=== PATIENT | male | born 1940 | race Caucasian/White ===

== ENCOUNTER → 2018-05-10 11:22 | Outpatient (CLI) | payer MEDICARE, BC, SELFPAY ==
--- NOTE | 2018-05-10 | DI.RAD.S_ITS ---
PROCEDURE: XR CHEST 2V INDICATIONS: COUGH TECHNIQUE: 2 views of the chest were acquired. COMPARISON: None. FINDINGS: Surgical changes and devices: None. Lungs and pleura: Left basilar scars or atelectasis. No pleural effusions or pneumothorax. Mediastinum: Mediastinal contours are normal. Heart size is normal. Bones and chest wall: No suspicious bony abnormalities. Soft tissues appear unremarkable. IMPRESSION: Left basilar scars or atelectasis. Dictated by: Crow Dobbs M.D. on 05/10/2018 at 19:52 Approved by: Crow Dobbs M.D. on 05/10/2018 at 19:52
== END ==
PROVIDERS: Visit Provider Student in an Organized Health Care Education/Training Program
DX: R05 Cough (principal); J20.9 Acute bronchitis, unspecified
CPT/HCPCS: 71046

== ENCOUNTER 2018-05-20 12:26 | Day surgery (SDC) | payer MEDICARE, BC, SELFPAY ==
[2018-05-20 12:54] VITALS: BP 141/83; PULSE 70; RESP 16; TEMP 36.3; O2SAT 99; BMI 21.7
--- NOTE | 2018-05-20 13:16 | SUR.PREOP ---
Reports history of palpitations when he lies on his left side for 3-[address] Mcadams informed, states that she will do the procedure with him lying on his back. patient in agreement with this.
[2018-05-20] MEDS: SODIUM CHLORIDE 0.9% 1,000 ML 100 ML IV (13:25)
--- NOTE | 2018-05-20 14:17 | P.HP_ITS ---
History of Present Illness Date Patient Seen: 05/20/18 Time Patient Seen: 14:15 Chief complaint: [id number] Narrative: Pleasant 77-year-old gentleman who presents for screening colonoscopy. He says his last 1 was about 10 or 11 years ago. He does admit to a family history of colon cancer affecting his father. He says his father was 80 when he was diagnosed. He denies any new problems or symptoms related to the function of his GI tract. He reports he needs a colonoscopy as part of the [facility] maintenance program. Mr. 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 This is been going on for approximately 40 years. He has had multiple stress tests and cardiac evaluations. Eventually, he was told just to avoid lying on his left side but that if he had palpitations they were not life threatening. Patient History Medical History Ankle sprain (Acute) Former smoker (Acute) Fracture of right hand (Acute) Hearing loss (Acute) Heartburn (Acute) History of duodenal ulcer (Acute) History of headache (Acute) Hypertension (Acute) Impaired vision (Acute) Sleep apnea (Acute) Upper respiratory infection (Acute) Surgical History History of facelift (Acute ~2004) History of inguinal hernia repair, bilateral (Acute ~1999) Social History household members: spouse Family & Social History Social History: household members spouse Meds Home Medications Medication Instructions Recorded Confirmed Type [VICONASE] #0 04/11/06 History nngxwwzedb-ygnzaakcdwccq-[id number] 1 cap PO Q4-6H PRN 05/20/18 05/20/18 History [Fioricet] cholecalciferol (vitamin D3) 400 unit PO TID 05/20/18 05/20/18 History [Vitamin D3] coenzyme Q10 50 mg PO DAILY 05/20/18 05/20/18 History losartan 50 mg PO DAILY 05/20/18 05/20/18 History magnesium 250 mg PO DAILY 05/20/18 05/20/18 History tamsulosin 0.8 mg PO DAILY 05/20/18 05/20/18 History vitamin N40-dpizb acid 2 tab PO DAILY 05/20/18 05/20/18 History Allergies Allergy/AdvReac Type Severity Reaction Status Date / Time erythromycin base Allergy Severe Hard to Verified 05/20/18 13:00 breath Review of Systems Review of Systems All systems reviewed & are unremarkable except as noted in HPI and below Exam Vital Signs (past 8 hours): - 05/20/18 12:54 Temperature 97.3 F L Pulse Rate 70 Respiratory Rate 16 Blood Pressure 141/83 H Pulse Oximetry 99 Oxygen Delivery Method Room Air Narrative Exam Narrative: Very pleasant gentleman who appears younger than his stated age HEENT: Normocephalic and atraumatic, pupils equal round reactive to light accommodation with anicteric sclera Lungs: Clear to auscultation bilaterally Heart: Regular rate rhythm without murmur rub or gallop Abdomen: Soft, nontender, active bowel sounds Extremities: Warm and well-perfused and without edema Assessment & Plan Assessment & Plan narrative: Pleasant gentleman with a family history of colon cancer here for screening colonoscopy. We discussed the risks and benefits of the procedure the patient expressed a desire to complete it today.
[2018-05-20] MEDS: MIDAZOLAM 5 MG/5 ML VIAL IV (14:33)
[2018-05-20] MEDS: fentaNYL 250 MCG/5 ML INJ IV (14:34)
--- NOTE | 2018-05-20 14:40 | PM.OP.1 ---
Operative Date/Time/Diagnoses Date of procedure: 05/20/18 Time of procedure: 14:40 Pre-op diagnosis: Screening Post-op diagnosis: same Procedure & Clinicians Procedure: Colonoscopy to the cecum Same procedure as scheduled: Yes Indications: Last colonoscopy 11 years ago Surgeon: Bethany Welch Anesthesia Type: Sedation (Versed 4 mg; fentanyl 150 micro g) Operative Notes Findings: 1. Adequate prep 2. No polyps or mass lesions 3. No AV malformations 4. Significant diverticulosis limits to the sigmoid region without any evidence of inflammation. There are large and small tics and some false passages. 5. Grade 2 internal hemorrhoids without evidence of active hemorrhage Closure Type: not applicable Specimen(s): none sent Procedure in detail: After obtaining informed consent, the patient was brought to the GI suite and placed on the examination table. Because of the patient's history of SVT in the left lateral decubitus position, we elected to perform the procedure in the supine position.. After placement of appropriate monitors, the patient was given incremental doses of Versed and Fentanyl until an appropriate level of sedation was achieved. A time out was held per SCOAP protocol. A digital rectal examination was performed and did not reveal any masses or obstructing lesions. The colonoscope was gently passed into the patient's anus and the entire colon navigated to the level of the cecum with minimal difficulty. Once in the cecum, the scope was withdrawn being sure to go before and beyond all mucosal folds and prominences and get an excellent examination. The findings are noted above. At the level of the rectal vault, the scope was retroflexed and the internal anal canal was examined. The scope was straightened and air aspirated from the colon. The instrument was removed from the patient's body and the procedure was concluded. The patient was allowed to awaken from sedation without difficulty and taken to the post-anesthesia care unit in good condition. Total sedation time was 20 minutes Total withdrawal time was 8 minutes Complications: none Condition: stable Disposition: PACU Plan for aftercare: 1. Discharge to home 2. Plan for next colonoscopy in 5 years or as clinically indicated. The 5 year time allotment is due to the patient's family history of colon cancer
[2018-05-20 14:42] VITALS: BP 119/71; PULSE 75; RESP 9; TEMP 36.2; O2SAT 94
[2018-05-20 14:47] VITALS: BP 110/65; PULSE 72; RESP 8; O2SAT 93
[2018-05-20 14:52] VITALS: BP 114/77; PULSE 86; RESP 12; O2SAT 96
[2018-05-20 15:00] VITALS: BP 116/74; PULSE 68; RESP 12; TEMP 36.4; O2SAT 96
== END 2018-05-20 15:27 | disposition home or self-care (01) ==
PROVIDERS: PCP Internal Medicine; Visit Provider Surgery
PROC: 0DJD8ZZ Inspection of Lower Intestinal Tract, Via Natural or Artificial Opening Endoscopic (ICD-10-PCS; CPT 45378; principal; 2018-05-20 14:00)
DX: Z12.11 Encounter for screening for malignant neoplasm of colon (principal); K64.1 Second degree hemorrhoids; K57.30 Diverticulosis of large intestine without perforation or abscess without bleeding; Z80.0 Family history of malignant neoplasm of digestive organs; I10 Essential (primary) hypertension; G47.30 Sleep apnea, unspecified; Z87.891 Personal history of nicotine dependence
CPT/HCPCS: G0105; 99152; J2250; J3010

== ENCOUNTER 2018-06-04 08:39 | Emergency (ER) | payer MEDICARE, BC, SELFPAY ==
[2018-06-04 08:48] VITALS: BP 142/69; PULSE 76; RESP 15; TEMP 36.5; O2SAT 100; BMI 23.1
--- NOTE | 2018-06-04 08:54 | ED.SYNCOPE ---
HPI - Syncope General Chief Complaint: Syncope Stated Complaint: Syncope Time Seen by Provider: 06/04/18 08:49 Source: patient and EMS Mode of arrival: EMS History of Present Illness HPI narrative: Patient is 69-year-old male who presents after syncopal episode. He had an outpatient procedure done on his right elbow yesterday for skin removal. He said he woke up this morning took a Percocet on an empty stomach. [place] like his pulse was low extremely lightheaded sweaty and passed out. It was briefly no shaking. EMS arrived glucose was 49. He ate some eggs glucose now 113. No nausea or vomiting. No weakness numbness or tingling. Overall feeling much better. In the past he felt his heart racing when he went to bed so he has had a Holter monitor he does not remember what the results were but they did not find anything. He has no chest pain. Overall feeling much better. Related Data Home Medications Medication Instructions Recorded Confirmed irfastmyhh-mibctdscscvaw-qsac 1 cap PO Q4-6H PRN 05/20/18 06/04/18 [Fioricet] cholecalciferol (vitamin D3) 400 unit PO TID 05/20/18 06/04/18 [Vitamin D3] coenzyme Q10 50 mg PO QNOON 05/20/18 06/04/18 losartan 50 mg PO DAILY 05/20/18 06/04/18 magnesium 250 mg PO QPM 05/20/18 06/04/18 tamsulosin 0.8 mg PO DAILY 05/20/18 06/04/18 vitamin T59-hqwge acid 2 tab PO DAILY 05/20/18 06/04/18 Allergies Allergy/AdvReac Type Severity Reaction Status Date / Time erythromycin base Allergy Severe Hard to Verified 05/20/18 13:00 breath Review of Systems Review of Systems ROS Unobtainable: All systems reviewed & are unremarkable except as noted in HPI and below Constitutional Denies chills, Denies fever(s), Denies lethargy and Denies weakness Eyes Denies change in vision, Denies eye discharge, Denies irritation and Denies loss of vision Cardiovascular Reports as per HPI, Reports syncope, Denies dyspnea and Denies dyspnea on exertion Respiratory Denies cough, Denies dyspnea, Denies dyspnea on exertion and Denies wheezing Gastrointestinal Gastrointestinal: Denies abdominal pain, Denies change in bowel habits, Denies diarrhea, Denies nausea and Denies vomiting Genitourinary Denies hematuria, Denies flank pain, Denies urinary incontinence and Denies urinary urgency Musculoskeletal Denies back pain, Denies muscle weakness, Denies numbness and Denies tingling Integumentary/Breasts Denies pruritus, Denies erythema, Denies rash and Denies wounds Neurologic Denies confusion, Reports syncope, Denies loss of vision, Denies numbness, Denies tingling and Denies weakness Psychiatric Denies anxiety, Denies confusion, Denies depression, Denies homicidal ideation and Denies suicidal ideation Allergic/Immunologic Denies wheezing [facility] Medical History Ankle sprain (Acute) Former smoker (Acute) Fracture of right hand (Acute) Hearing loss (Acute) Heartburn (Acute) History of duodenal ulcer (Acute) History of headache (Acute) Hypertension (Acute) Impaired vision (Acute) Sleep apnea (Acute) Upper respiratory infection (Acute) Surgical History History of facelift (Acute ~2004) History of inguinal hernia repair, bilateral (Acute ~1999) Social History household members: spouse Smoking Status: Former smoker Social History household members: spouse Smoking Status: Former smoker Exam Initial Vital Signs Initial Vital Signs: Vital Signs Temperature 97.7 F 06/04/18 08:48 Pulse Rate 76 06/04/18 08:48 Respiratory Rate 15 06/04/18 08:48 Blood Pressure 142/69 H 06/04/18 08:48 Pulse Oximetry 100 06/04/18 08:48 GENERAL: Alert pleasant well-appearing elderly male and in [no acute] distress. HEENT: Head atraumatic,EOMI, pupils reactive, face symmetric, CARDIOVASCULAR: Regular rate and rhythm without murmurs, rubs or gallops. RESPIRATORY: Breath sounds equal bilaterally, no wheezes rales or rhonchi. ABDOMEN: Soft, nontender. Normoactive bowel sounds all 4 quadrants. No guarding or rebound. EXTREMITIES: Normal range of motion, no clubbing or edema. Neurovascularly intact NEUROLOGICAL: Alert and oriented x4.Normal gait and speech. Cranial nerves II through XII grossly intact. program medical director strength equal bilaterally good finger to nose lower extremity strength equal face is symmetric no aphasia or dysarthria SKIN: Warm, dry, no laceration, no petechiae, no rashes or lesions. Scores NIH Stroke Scale Level of Conciousness: Alert, keenly responsive Ask month/age: Answers both questions correctly. Open/close eyes, close hand: Performs both tasks correctly Best gaze horizontal: Normal Visual hernández: No visual loss Facial palsy: Normal symetrical movement Left arm drift: No drift for full 10 sec Right arm drift: No drift for full 10 sec Left leg drift: No drift for full 10 sec Right leg drift: No drift for full 10 sec Limb ataxia: Absent Sensory on face/arms/legs: Normal, no sensory loss Best language: No aphasia, normal Dysarthria: Normal Extinction or inattention: No abnormality Total NIH Stroke scale score: 0 Course Orders Ordered: Discontinued Medications Sodium Chloride (Normal Saline 0.9%) 1,000 mls @ 1,000 mls/hr IV BOLUS ONE Stop: 06/04/18 09:51 Last Infusion: 06/04/18 10:43 Dose: 1,000 mls/hr Admin: 06/04/18 09:46 Dose: 1,000 mls/hr Vital Signs - 8 hr 06/04/18 08:48 Temperature 97.7 F Pulse Rate 76 Respiratory Rate 15 Blood Pressure 142/69 H Pulse Oximetry 100 MDM - Syncope Lab Data Attestation: I reviewed the patient's lab results. Result diagrams: 06/04/18 09:06 06/04/18 09:06 Lab Results 06/04/18 06/04/18 06/04/18 Range/Units 09:06 09:06 10:36 WBC 6.3 (4.5-11.0) X10^3/uL RBC 4.59 (4.5-5.9) X10^6/uL Hgb 13.8 (13.5-17.5) g/dL Hct 41.9 (41-53) % MCV 91.2 (80-100) fL MCH 30.1 (26-34) PG MCHC 33.0 (30-36) % RDW 15.0 H (11.6-14.8) % Plt Count 215 (150-400) X10^3/uL Neut % (Auto) 67.7 (50-75) % Lymph % (Auto) 20.1 L (25-40) % [place] % (Auto) 10.1 (3-14) % Eos % (Auto) 1.4 L (2-4) % Baso % (Auto) 0.7 (0-2) % Neut # (Auto) 4200 (9177-9028) /uL Lymph # (Auto) 1300 (9480-4117) /uL [place] # (Auto) 600 (0-900) /uL Eos # (Auto) 100 (0-450) /uL Baso # (Auto) 0 (0-100) /uL Sodium 138 (137-145) mmol/L Potassium 4.3 (3.4-5.1) mmol/L Chloride 102 (98-107) mmol/L Carbon Dioxide 27 (22-32) mmol/L BUN 25 H (9-20) mg/dL Creatinine 1.40 H (0.66-1.25) mg/dL Estimated GFR 49.0 L (>60) mL/min BUN/Creatinine Ratio 17.9 (6-22) Glucose 114 H (80-110) mg/dL Calcium 9.0 (8.4-10.2) mg/dL Total Bilirubin 0.3 (0.2-1.3) mg/dL AST 21 (17-59) IU/L ALT 28 (21-72) IU/L Alkaline Phosphatase 67 (38-126) U/L Total Creatine Kinase 101 (55-170) U/L CK-MB (CK-2) 0.85 (<2.37) ng/mL CK-MB (CK-2) Rel Index 0.8 L (1.5-5.0) % Troponin I < 0.012 (0.01-0.034) ng/mL Total Protein 6.7 (6.3-8.2) g/dL Albumin 4.1 (3.5-5.0) g/dL Globulin 2.6 (1.7-4.1) g/dL Albumin/Globulin Ratio 1.6 (1.0-2.8) Urine RBC None seen (0-5/HPF) Urine WBC None seen (0-5/HPF) Amorphous Sediment 2+ Urine Bacteria None seen (None) Ur Culture Indicated? Cult not indicated Point of Care Testing Glucose POC 113 Urine Dip Bedside Urine Glucose Negative Bedside Urine Bilirubin - Negative Bedside Urine Ketone - Negative Urine Specific [place] 1.015 Bedside Urine Occult Blood +/- Bedside Urine pH 8.5 Bedside Urine Protein +/- 15 Bedside Urine Urobilinogen - Negative Bedside Urine Nitrite - Negative Bedside Urine Leukocytes +/- 15 Esterase Imaging Data Chest x-ray: Radiologist's impression: PROCEDURE: XR CHEST 1V INDICATIONS: syncope TECHNIQUE: One view of the chest was acquired. COMPARISON: [facility], , XR CHEST 2V, 05/10/2018, 12:05. FINDINGS: Surgical changes and devices: None. Lungs and pleura: Minimal increased vascularity. No pleural effusions or pneumothorax. Mediastinum: Mediastinal contours appear normal. Heart size is normal. Bones and chest wall: No suspicious bony lesions. Overlying soft tissues appear unremarkable. IMPRESSION: No acute pulmonary process. Dictated by: Serenity Palomares M.D. on 06/04/2018 at 9:45 Approved by: Serenity Palomares M.D. on 06/04/2018 at 9:45 ECG Data Attestation: I personally reviewed and interpreted this ECG as follows: Prior ECG tracings: not available for review Interpretation: Normal sinus rhythm rate 62 OR interval [address] changes mild T-wave inversion noted in lead 3 but no other congruent leads MDM Narrative Medical decision making narrative: Patient sounds as though he had a vasovagal reaction. Feeling lightheaded dizzy took a pain pill an empty stomach with low glucose. Overall feeling better glucose remains stable. Discussed test results with both patient and . Overall feeling much better. At this time I do not believe patient wore any other further imaging. Discharge Plan Departure Patient Disposition: Home Clinical Impression: Vasovagal syncope Discharge Date/Time: 06/04/18 10:45 Interventions: ED Discharge Assessment Last Done: 06/04/18 10:44 Instructions: DI for Syncope in Adults (Fainting) Activity Restrictions/Additional Instructions: *You have been diagnosed with fainting episode *What to do: Today thought to be due to low blood sugar and pain pill on an empty stomach. Blood work x-ray EKG reassuring. If recurrent episode may require further outpatient testing *Continue to take medications as directed *Follow up with your primary care provider in 2-3 days *Return to ER if you should have recurrent syncopal episode, chest pain, shortness of breath, or any new, worsening or concerning symptoms Prescriptions: No Action losartan 50 mg Tablet 50 mg PO DAILY RF: 0 coenzyme Q10 50 mg Capsule 50 mg PO QNOON RF: 0 tamsulosin 0.4 mg Capsule 0.8 mg PO DAILY RF: 0 magnesium 250 mg Tablet 250 mg PO QPM RF: 0 cholecalciferol (vitamin D3) [Vitamin D3] 400 unit Capsule 400 unit PO TID RF: 0 vitamin X00-ycipe acid 500-400 mcg Tablet 2 tab PO DAILY RF: 0 qwmaourpuk-mdbmtkhutftoi-pkfm [Fioricet] 50-300-40 mg Capsule 1 cap PO Q4-6H PRN (Reason: neck pain) RF: 0 Referrals: Krish Stallings MD [Primary Care Provider] -
[2018-06-04 09:14] LABS: Add Manual Diff / Slide Review NO; Basophils Absolute Auto 0 /uL (0-100); Basophils Percent Auto 0.7 % (0-2); Eosinophils Absolute Auto 100 /uL (0-450); Eosinophils Percent Auto 1.4 % (2-4); Hematocrit 41.9 % (41-53); Hemoglobin 13.8 g/dL (13.5-17.5); Lymphocytes Absolute Auto 1300 /uL (1100-4500); Lymphocytes Percent Auto 20.1 % (25-40); Mean Corpuscular Hemoglobin 30.1 PG (26-34); Mean Corpuscular Volume 91.2 fL (80-100); Monocytes Absolute Auto 600 /uL (0-900); Monocytes Percent Auto 10.1 % (3-14); Neutrophils Absolute Auto 4200 /uL (1500-7000); Neutrophils Percent Auto 67.7 % (50-75); Platelet Count 215 X10^3/uL (150-400); Red Blood Cell Count 4.59 X10^6/uL (4.5-5.9); White Blood Cell Count 6.3 X10^3/uL (4.5-11.0)
[2018-06-04 09:26] LABS: Alanine Aminotransferase 28 IU/L (21-72); Albumin 4.1 g/dL (3.5-5.0); Albumin Globulin Ratio 1.6 (1.0-2.8); Alkaline Phosphatase 67 U/L (38-126); Aspartate Aminotransferase 21 IU/L (17-59); BUN Creatinine Ratio 17.9 (6-22); Bilirubin Total 0.3 mg/dL (0.2-1.3); Blood Urea Nitrogen 25 mg/dL (9-20); Carbon Dioxide 27 mmol/L (22-32); Chloride 102 mmol/L (98-107); Creatine Kinase 101 U/L (55-170); Globulin 2.6 g/dL (1.7-4.1); Glucose 114 mg/dL (80-110); HEMOLYSIS < 15 (0-50); Potassium 4.3 mmol/L (3.4-5.1); Sodium 138 mmol/L (137-145); Total Protein 6.7 g/dL (6.3-8.2)
[2018-06-04 09:37] LABS: Troponin I < 0.012 ng/mL (0.01-0.034)
[2018-06-04 09:41] LABS: CKMB % Relative Index 0.8 % (1.5-5.0); Creatine Kinase MB 0.85 ng/mL (<2.37)
[2018-06-04] MEDS: SODIUM CHLORIDE 0.9% 1,000 ML 1000 ML IV (09:46)
[2018-06-04 10:31] VITALS: BP 143/77; PULSE 62; RESP 14; O2SAT 100
[2018-06-04 10:37] LABS: Bacteria Urine None Seen; RBC Urine None Seen (0-5/HPF); WBC Urine None Seen (0-5/HPF)
[2018-06-04 10:52] LABS: Amorphous Sediment Urine 2+; Culture Indicated Urine Cult Not Indicated
== END 2018-06-04 10:45 | disposition home or self-care (01) ==
PROVIDERS: Emergency Provider Emergency Medicine; PCP Internal Medicine
DX: R55 Syncope and collapse (principal)
CPT/HCPCS: 36415; 71045; 80053; 81003; 81015; 82550; 82553; 84484; 85025; 93005; 93010; 96360; 99283; 99284

== ENCOUNTER → 2018-07-04 12:38 | Outpatient (CLI) | payer MEDICARE, BC, SELFPAY | PROVIDERS: PCP Internal Medicine; Visit Provider Internal Medicine | DX: M81.0 Age-related osteoporosis without current pathological fracture (principal); Z82.62 Family history of osteoporosis; Z87.891 Personal history of nicotine dependence | CPT/HCPCS: 77080 ==

== ENCOUNTER → 2019-01-07 09:40 | Outpatient (CLI) | payer MEDICARE, BC, SELFPAY ==
[2019-01-10 16:13] LABS: Parathyroid Hormone Int 22 pg/mL (14-64)
== END ==
PROVIDERS: PCP Internal Medicine; Visit Provider Internal Medicine
DX: M81.0 Age-related osteoporosis without current pathological fracture (principal)
CPT/HCPCS: 36415; 83970; 84403

== ENCOUNTER → 2019-07-08 08:56 | Outpatient (CLI) | payer MEDICARE, BC, SELFPAY ==
[2019-07-08 11:01] LABS: BUN Creatinine Ratio 17.8 (6-22); Blood Urea Nitrogen 28 mg/dL (9-20); Calcium 9.5 mg/dL (8.4-10.2); Carbon Dioxide 30 mmol/L (22-32); Chloride 102 mmol/L (98-107); Estimated Glomerular Filt Rate 42.8 mL/min (>60); Glucose 94 mg/dL (80-110); HEMOLYSIS < 15 (0-50); Potassium 4.4 mmol/L (3.4-5.1); Sodium 139 mmol/L (137-145)
== END ==
PROVIDERS: PCP Internal Medicine; Referring Provider Internal Medicine; Visit Provider Internal Medicine
DX: I10 Essential (primary) hypertension (principal)
CPT/HCPCS: 36415; 80048

== ENCOUNTER 2020-03-26 16:44 | Emergency (ER) | payer MEDICARE, BC, SELFPAY ==
--- NOTE | 2020-03-26 16:51 | ED.GENADULT ---
HPI - General Adult General Chief complaint: Neuro Symptoms/Deficit Stated complaint: Thinks mini stroke,woke up to blurry vision Time Seen by Provider: 03/26/20 16:49 Source: patient Mode of arrival: Ambulatory Limitations: no limitations History of Present Illness HPI narrative: 79-year-old male. Not on anticoagulation who states that approximately 6-1/2 hours ago sat down to take a nap and waking 45 minutes later stating that he occasionally was having problems with blurry vision. His also states that he complained of double vision but the patient states that seems to have resolved. He denies any other associated symptoms. Has never had anything like this in the past. He is concerned about a mini-stroke. He states that his symptoms occur when he looks to the right. He states that it is a blurry vision that after he focuses on the opted for period of time the symptoms resolved within as he looks away he has to focus again because of poor vision. Related Data Home Medications Medication Instructions Recorded Confirmed [id number] 1 cap PO Q4-6H PRN 05/20/18 06/04/18 [Fioricet] cholecalciferol (vitamin D3) 400 unit PO TID 05/20/18 06/04/18 [Vitamin D3] coenzyme Q10 50 mg PO QNOON 05/20/18 06/04/18 losartan 50 mg PO DAILY 05/20/18 06/04/18 magnesium 250 mg PO QPM 05/20/18 06/04/18 tamsulosin 0.8 mg PO DAILY 05/20/18 06/04/18 vitamin H90-ltjol acid 2 tab PO DAILY 05/20/18 06/04/18 Allergies Allergy/AdvReac Type Severity Reaction Status Date / Time erythromycin base Allergy Severe Hard to Verified 03/26/20 16:54 breath Review of Systems Constitutional Constitutional: Denies fatigue, Denies fever(s) and Denies headache(s) Eyes Eyes: Reports blurry vision, Reports change in vision, Reports diplopia, Denies eye discharge, Denies loss of vision, Denies eye pain, Denies seeing flashes and Denies tunnel vision ENT Ears, Nose, Mouth, and Throat: Denies vertigo, Denies dizziness, Denies headache(s) and Denies disequilibrium Cardiovascular Cardiovascular: Denies chest pain, Denies rapid heart rate, Denies lightheadedness and Denies dyspnea Respiratory Respiratory: Denies dyspnea Gastrointestinal Gastrointestinal: Denies abdominal pain, Denies nausea and Denies vomiting Musculoskeletal Musculoskeletal: Denies arthralgias, Denies myalgias, Denies numbness and Denies tingling Integumentary/Breasts Skin/Breast: Denies lesions and Denies rash Neurologic Neurologic: Denies behavioral changes, Denies confusion, Denies vertigo, Denies dizziness, Denies headache(s), Denies lack of coordination, Denies loss of vision, Denies memory loss, Denies numbness, Denies tingling and Denies disequilibrium Psychiatric Psychiatric: Denies behavioral changes, Denies confusion and Denies memory loss Endocrine Endocrine: Denies fatigue Hematologic/Lymphatic Hematologic/Lymphatic: Denies easy bleeding and Denies easy bruising On Anticoagulants: No Allergic/Immunologic Allergic/Immunologic: Denies urticaria Patient History Medical History (Updated 03/26/20 @ 18:28 by Eugene West DO) Ankle sprain Former smoker Fracture of right hand Hearing loss Heartburn History of duodenal ulcer History of headache Hypertension Impaired vision Sleep apnea Upper respiratory infection Surgical History History of facelift (~2004) History of inguinal hernia repair, bilateral (~1999) Social History household members: spouse Smoking Status: Former smoker Smoking Status: Former smoker alcohol intake frequency: a few times a week Substance Use Type: marijuana Exam Initial Vital Signs Initial Vital Signs: Vital Signs Temperature 98.0 F 03/26/20 16:52 Pulse Rate 68 03/26/20 16:52 Respiratory Rate 16 03/26/20 16:52 Blood Pressure 178/85 H 03/26/20 16:52 Pulse Oximetry 98 03/26/20 16:52 Const General: cooperative and comfortable Limitations: mental status not altered [facility] Head: normal to inspection and normocephalic Nose: external nose normal Eyes General: appearance normal, both eyes and all related structures Alignment and Position: alignment normal Eyelids: eyelids normal Pupils: PERRL EOM: EOM intact bilaterally Resp Effort & Inspection: normal respiratory effort Auscultation: clear to auscultation bilaterally Cardio Rate: regular rate Rhythm: regular rhythm Skin Lesions: no lesions Rashes: no rashes Neuro General: patient alert, patient awake and patient oriented x3 Cranial Nerves: CN's II-XI intact bilaterally Cognition: normal cognition Speech: speech normal Gait: normal gait Motor: muscle tone normal throughout Sensory Exam: no sensory deficits noted Extrem General: normal to inspection and capillary refill normal Psych Appearance: grossly normal and well kempt Scores GCS [place] coma scale eye opening: Spontaneous [place] coma scale verbal response: Orientated [place] coma scale motor response: Obey commands [place] coma scale total score: 15 Course Orders Ordered: ED Orders 03/26/20 16:58 CT head/brain wo con Stat EKG-12 Lead Stat 03/26/20 17:01 Complete Blood Count AUTO DIFF Stat Comprehensive Metabolic Panel Stat Lipase Stat Partial Thromboplastin Time Stat Prothrombin Time INR Stat Vital Signs Vital signs: Vital Signs - 8 hr 03/26/20 16:52 Temperature 98.0 F Pulse Rate 68 Respiratory Rate 16 Blood Pressure 178/85 H Pulse Oximetry 98 Medical Decision Making Lab Data Lab results reviewed: Yes I reviewed the patient's lab results. Result diagrams: 03/26/20 17:01 03/26/20 17:01 Labs: Lab Results 03/26/20 03/26/20 03/26/20 Range/Units 17:01 17:01 17:01 WBC 6.0 (4.5-11.0) X10^3/uL RBC 4.40 L (4.5-5.9) X10^6/uL Hgb 13.6 (13.5-17.5) g/dL Hct 40.0 L (41-53) % MCV 90.7 (80-100) fL MCH 30.9 (26-34) PG MCHC 34.1 (30-36) % RDW 14.5 (11.6-14.8) % Plt Count 250 (150-400) X10^3/uL Neut % (Auto) 53.1 (50-75) % Lymph % (Auto) 29.8 (25-40) % [place] % (Auto) 12.7 (3-14) % Eos % (Auto) 3.7 (2-4) % Baso % (Auto) 0.7 (0-2) % Neut # (Auto) 3200 (1621-6219) /uL Lymph # (Auto) 1800 (0124-2550) /uL [place] # (Auto) 800 (0-900) /uL Eos # (Auto) 200 (0-450) /uL Baso # (Auto) 0 (0-100) /uL PT 11.1 (10.1-12.7) SECONDS INR 1.0 (0.9-1.3) APTT 33 (26.4-36.2) SECONDS Sodium 137 (137-145) mmol/L Potassium 4.0 (3.4-5.1) mmol/L Chloride 102 (98-107) mmol/L Carbon Dioxide 30 (22-32) mmol/L BUN 32 H (9-20) mg/dL Creatinine 1.71 H (0.66-1.25) mg/dL Estimated GFR 38.7 L (>60) mL/min BUN/Creatinine Ratio 18.7 (6-22) Glucose 100 (80-110) mg/dL Calcium 9.4 (8.4-10.2) mg/dL Total Bilirubin 0.2 (0.2-1.3) mg/dL AST 27 (17-59) IU/L ALT 18 (<50) IU/L Alkaline Phosphatase 65 (38-126) U/L Total Protein 7.3 (6.3-8.2) g/dL Albumin 4.2 (3.5-5.0) g/dL Globulin 3.1 (1.7-4.1) g/dL Albumin/Globulin Ratio 1.4 (1.0-2.8) Lipase (23-300) U/L 03/26/20 Range/Units 17:01 WBC (4.5-11.0) X10^3/uL RBC (4.5-5.9) X10^6/uL Hgb (13.5-17.5) g/dL Hct (41-53) % MCV (80-100) fL MCH (26-34) PG MCHC (30-36) % RDW (11.6-14.8) % Plt Count (150-400) X10^3/uL Neut % (Auto) (50-75) % Lymph % (Auto) (25-40) % [place] % (Auto) (3-14) % Eos % (Auto) (2-4) % Baso % (Auto) (0-2) % Neut # (Auto) (9038-2084) /uL Lymph # (Auto) (4076-6862) /uL [place] # (Auto) (0-900) /uL Eos # (Auto) (0-450) /uL Baso # (Auto) (0-100) /uL PT (10.1-12.7) SECONDS INR (0.9-1.3) APTT (26.4-36.2) SECONDS Sodium (137-145) mmol/L Potassium (3.4-5.1) mmol/L Chloride (98-107) mmol/L Carbon Dioxide (22-32) mmol/L BUN (9-20) mg/dL Creatinine (0.66-1.25) mg/dL Estimated GFR (>60) mL/min BUN/Creatinine Ratio (6-22) Glucose (80-110) mg/dL Calcium (8.4-10.2) mg/dL Total Bilirubin (0.2-1.3) mg/dL AST (17-59) IU/L ALT (<50) IU/L Alkaline Phosphatase (38-126) U/L Total Protein (6.3-8.2) g/dL Albumin (3.5-5.0) g/dL Globulin (1.7-4.1) g/dL Albumin/Globulin Ratio (1.0-2.8) Lipase 190 (23-300) U/L Imaging Data CT scan - head: Radiologist's Impression: [address] Scan ReportSigned Patient: Robson Mirza R#: [id number]: 1940Acct:[id number]/Sex: 79 / MDate of Service: 03/26/20Loc: EDAccession Number: [id number] Procedure: CT head/brain wo con Ordering Provider: Eugene West D.O. PROCEDURE: CT HEAD/BRAIN WO CON INDICATIONS: Blurry vision TECHNIQUE: Noncontrast 4.5 mm thick angled axial sections acquired from the foramen magnum to the vertex, with coronal and sagittal reformats. For radiation dose reduction, the following was used: automated exposure control, adjustment of mA and/or kV according to patient size. COMPARISON: [facility], MR, MR IAC WITH/WITHOUT CONTRAST, 08/20/2017, 8:36. FINDINGS: Image quality: Mildly prominent retro cerebellar fluid collection is unchanged from prior examination there is suggestion of mild mass effect on the adjacent left cerebellum which is also unchanged likely representing an arachnoid cyst. No focal extra-axial CSF spaces: Basal cisterns are patent. No extra-axial fluid collections. The ventricles are symmetric in size and shape. Brain: No intracranial bleeds or masses. There is cerebral volume loss for age, with resultant ventricular and sulcal prominence. There are periventricular and deep white matter chronic small vessel ischemic changes. There is intracranial internal carotid artery atherosclerosis. Skull and face: Calvarium and visualized facial bones appear intact, without suspicious lesions. Sinuses: Visualized sinuses and mastoids are clear. IMPRESSION: Senescent changes including cerebral volume loss and microvascular ischemic changes without evidence of an acute transcortical infarction or intracranial hemorrhage. 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 Dictated by: Harpreet Santamaria D.O. on 03/26/2020 at 16:26 Approved by: Harpreet Santamaria D.O. on 03/26/2020 at 16:35 ECG Data Attestation: I personally reviewed and interpreted this ECG as follows: Prior ECG tracings: not available for review Interpretation: Sinus rhythm Ventricular rate is 61 First-degree AV block [place] interval 2-6 milliseconds Left axis deviation No ST T wave changes MDM Narrative Medical decision making narrative: Patient's head CT is unremarkable, EKG is unremarkable, his neuro exam is unremarkable. I was unable to do distinguish any specific cranial nerve palsy with his exam. Visual acuity is noted. All of his neurologic symptoms seem to be related to his size and it is a positional issue. Low suspicion for CVA or TIA. He is under the care of a export manager who is going to contact on Saturday for follow-up. He was given return precautions. She expressed understanding and agreement. Discharge Plan Departure Patient Disposition: Home Clinical Impression: Subjective vision disturbance Instructions: DI for Visual Field Disturbances Activity Restrictions/Additional Instructions: On Saturday recommend you contact the ophthalmology department for a follow-up. Also recommend you contact your primary provider for follow-up. Continue all of your medications as directed. Return to the emergency department immediately if you have any new or worsening symptoms like we discussed. Prescriptions: No Action losartan 50 mg Tablet 50 mg PO DAILY RF: 0 coenzyme Q10 50 mg Capsule 50 mg PO QNOON RF: 0 tamsulosin 0.4 mg Capsule 0.8 mg PO DAILY RF: 0 magnesium 250 mg Tablet 250 mg PO QPM RF: 0 cholecalciferol (vitamin D3) [Vitamin D3] 400 unit Capsule 400 unit PO TID RF: 0 vitamin A43-rfaiq acid 500-400 mcg Tablet 2 tab PO DAILY RF: 0 syekmdyase-[id number]-pdee [Fioricet] 50-300-40 mg Capsule 1 cap PO Q4-6H PRN (Reason: neck pain) RF: 0 Referrals: Krish Stallings MD [Primary Care Provider] -
[2020-03-26 16:52] VITALS: BP 178/85; PULSE 68; PULSE 69; RESP 16; RESP 19; TEMP 36.7; O2SAT 98; BMI 23.6
--- NOTE | 2020-03-26 16:58 | DI.CT.S_ITS ---
PROCEDURE: CT HEAD/BRAIN WO CON INDICATIONS: Blurry vision TECHNIQUE: Noncontrast 4.5 mm thick angled axial sections acquired from the foramen magnum to the vertex, with coronal and sagittal reformats. For radiation dose reduction, the following was used: automated exposure control, adjustment of mA and/or kV according to patient size. COMPARISON: [facility], MR, MR IAC WITH/WITHOUT CONTRAST, 08/20/2017, 8:36. FINDINGS: Image quality: Mildly prominent retro cerebellar fluid collection is unchanged from prior examination there is suggestion of mild mass effect on the adjacent left cerebellum which is also unchanged likely representing an arachnoid cyst. No focal extra-axial CSF spaces: Basal cisterns are patent. No extra-axial fluid collections. The ventricles are symmetric in size and shape. Brain: No intracranial bleeds or masses. There is cerebral volume loss for age, with resultant ventricular and sulcal prominence. There are periventricular and deep white matter chronic small vessel ischemic changes. There is intracranial internal carotid artery atherosclerosis. Skull and face: Calvarium and visualized facial bones appear intact, without suspicious lesions. Sinuses: Visualized sinuses and mastoids are clear. IMPRESSION: Senescent changes including cerebral volume loss and microvascular ischemic changes without evidence of an acute transcortical infarction or intracranial hemorrhage. 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 Dictated by: Harpreet Santamaria D.O. on 03/26/2020 at 16:26 Approved by: Harpreet Santamaria D.O. on 03/26/2020 at 16:35
[2020-03-26 17:00] VITALS: PULSE 66; RESP 15; O2SAT 98
--- NOTE | 2020-03-26 17:20 | PC.NURSE ---
Patient states he has blurry vision worse when looking to the right in exam (not left as originally stated by patient) Patient reports when he looks downward in front of himself it appears slightly double vision which if focuses hard enough will straighten out. Pupils equal and reactive. Patient denies headache, no other weakness noted.
[2020-03-26 17:27] LABS: Add Manual Diff / Slide Review NO; Basophils Absolute Auto 0 /uL (0-100); Basophils Percent Auto 0.7 % (0-2); Eosinophils Absolute Auto 200 /uL (0-450); Eosinophils Percent Auto 3.7 % (2-4); Hemoglobin 13.6 g/dL (13.5-17.5); Lymphocytes Absolute Auto 1800 /uL (1100-4500); Lymphocytes Percent Auto 29.8 % (25-40); Mean Corpuscular HGB Conc 34.1 % (30-36); Mean Corpuscular Hemoglobin 30.9 PG (26-34); Mean Corpuscular Volume 90.7 fL (80-100); Monocytes Absolute Auto 800 /uL (0-900); Monocytes Percent Auto 12.7 % (3-14); Neutrophils Absolute Auto 3200 /uL (1500-7000); Neutrophils Percent Auto 53.1 % (50-75); Platelet Count 250 X10^3/uL (150-400); Red Cell Distribution Width 14.5 % (11.6-14.8)
[2020-03-26 17:28] LABS: Alanine Aminotransferase 18 IU/L (<50); Albumin 4.2 g/dL (3.5-5.0); Albumin Globulin Ratio 1.4 (1.0-2.8); Alkaline Phosphatase 65 U/L (38-126); Aspartate Aminotransferase 27 IU/L (17-59); BUN Creatinine Ratio 18.7 (6-22); Bilirubin Total 0.2 mg/dL (0.2-1.3); Blood Urea Nitrogen 32 mg/dL (9-20); Calcium 9.4 mg/dL (8.4-10.2); Carbon Dioxide 30 mmol/L (22-32); Chloride 102 mmol/L (98-107); Estimated Glomerular Filt Rate 38.7 mL/min (>60); Globulin 3.1 g/dL (1.7-4.1); Glucose 100 mg/dL (80-110); HEMOLYSIS < 15 (0-50); Lipase 190 U/L (23-300); Sodium 137 mmol/L (137-145); Total Protein 7.3 g/dL (6.3-8.2)
[2020-03-26 17:30] VITALS: PULSE 65; O2SAT 99
[2020-03-26 17:38] LABS: Prothrombin Time 11.1 SECONDS (10.1-12.7)
[2020-03-26 17:41] LABS: PTT Partial Thromboplastin Tim 33 SECONDS (26.4-36.2)
[2020-03-26 18:00] VITALS: PULSE 60; O2SAT 97
[2020-03-26 18:30] VITALS: PULSE 64; RESP 14; O2SAT 96
[2020-03-26 18:38] VITALS: BP 177/80; PULSE 68; O2SAT 95
== END 2020-03-26 18:38 | disposition home or self-care (01) ==
PROVIDERS: Emergency Provider Emergency Medicine; PCP Internal Medicine
DX: H53.10 Unspecified subjective visual disturbances (principal); R07.9 Chest pain, unspecified
CPT/HCPCS: 36415; 70450; 80053; 83690; 85025; 85610; 85730; 93005; 93010; 99284

== ENCOUNTER → 2020-05-20 11:03 | Outpatient (CLI) | payer MEDICARE, BC, SELFPAY ==
--- NOTE | 2020-05-20 | DI.MRI.S_ITS ---
PROCEDURE: MR CERVICAL SPINE WO CON INDICATIONS: Spinal stenosis, cervical region TECHNIQUE: Noncontrast sagittal T1 spin echo and T2 fast spin echo, sagittal STIR, foraminal oblique sagittal T2 fast spin echo, and axial gradient echo or T2 fast spin echo through the cervical spine. COMPARISON: None. FINDINGS: Image quality: Excellent. Alignment and Curvature: There is normal bony alignment. Bone Marrow: Marrow demonstrates normal overall signal. Spinal Cord: Visualized spinal cord has normal size and signal. No cerebellar tonsillar herniation. Paraspinous Soft Tissues: No paravertebral masses. Prevertebral soft tissues are normal in thickness. C2-C3: No significant disc bulge. The foramina and central canal are patent. C3-C4: Diffuse disc bulge and disc osteophytes cause mild bilateral foraminal stenosis. No focal protrusion or extrusion. No central canal stenosis. C4-C5: No significant disc bulge. The foramina and central canal are patent. The central canal is patent. C5-C6: Diffuse disc bulge and disc osteophytes with disc space narrowing cause mild right and moderate left foraminal stenosis. The central canal is patent. C6-C7: Diffuse disc bulge and disc osteophytes with disc space narrowing cause mild bilateral foraminal stenosis. The central canal is patent. C7-T1: Disc space narrowing and disc osteophytes cause moderate right and mild left foraminal stenosis. The central canal is patent. IMPRESSION: 1. Multilevel cervical spondylosis predominantly at C3-4, C5-6, C6-7, and C7-T1. 2. No significant central canal stenosis. 3. No abnormal signal of the spinal cord. Dictated by: Fredy Nunez M.D. on 05/20/2020 at 12:24 Approved by: Fredy Nunez M.D. on 05/20/2020 at 12:30
== END ==
PROVIDERS: PCP Internal Medicine; Referring Provider Internal Medicine; Visit Provider Internal Medicine
DX: M48.02 Spinal stenosis, cervical region (principal); M47.816 Spondylosis without myelopathy or radiculopathy, lumbar region
CPT/HCPCS: 72141

== ENCOUNTER → 2020-06-07 09:35 | Outpatient (CLI) | payer MEDICARE, BC, SELFPAY ==
--- NOTE | 2020-06-07 09:37 | DI.RAD.S_ITS ---
PROCEDURE: XR CERVICAL SPINE 4V OR 5V INDICATIONS: BACK PAIN TECHNIQUE: 5 views of the cervical spine acquired. COMPARISON: None. FINDINGS: Bones: No fractures or dislocations to the T1 level. Oblique images demonstrate no bony foraminal stenoses. There is mild degenerative disc height reduction at C3-C4 and mild to moderate such degeneration at C4-C5. Moderate to moderately severe degenerative disc height reduction is present at C5-C6 and C6-C7. Foraminal stenosis appears present over the middle and lower thirds of the cervical spine in these areas of disc height reduction. Soft tissues: No prevertebral soft tissue swelling. IMPRESSION: No trauma found. Moderate to moderately severe degenerative changes along the mid to lower cervical spine, without ligamentous laxity and subluxation. Dictated by: Gm Clark M.D. on 06/07/2020 at 12:39 Approved by: Gm Clark M.D. on 06/07/2020 at 12:41
== END ==
PROVIDERS: PCP Internal Medicine; Referring Provider Physical Medicine & Rehabilitation; Visit Provider Physical Medicine & Rehabilitation
DX: M54.9 Dorsalgia, unspecified (principal); M47.812 Spondylosis without myelopathy or radiculopathy, cervical region
CPT/HCPCS: 72050

== ENCOUNTER 2020-08-17 16:17 | Emergency (ER) | payer MEDICARE, BC, SELFPAY ==
[2020-08-17 16:29] VITALS: BP 143/86; PULSE 65; RESP 18; TEMP 36.8; O2SAT 97
--- NOTE | 2020-08-17 16:32 | DI.RAD.S_ITS ---
PROCEDURE: XR CHEST 1V INDICATIONS: chest pain TECHNIQUE: One view of the chest was acquired. COMPARISON: [facility], CR, XR CHEST 1V, 06/04/2018, 9:00. FINDINGS: Surgical changes and devices: None. Lungs and pleura: Lungs are clear. No pleural effusions or pneumothorax. Mediastinum: Mediastinal contours appear normal. Heart size is normal. Bones and chest wall: No suspicious bony lesions. Overlying soft tissues appear unremarkable. IMPRESSION: No acute pulmonary process. Dictated by: Serenity Palomares M.D. on 08/17/2020 at 16:56 Approved by: Serenity Palomares M.D. on 08/17/2020 at 16:56
[2020-08-17 16:55] LABS: Add Manual Diff / Slide Review NO; Basophils Absolute Auto 0 /uL (0-100); Basophils Percent Auto 0.8 % (0-2); Eosinophils Absolute Auto 200 /uL (0-450); Eosinophils Percent Auto 2.4 % (2-4); Hematocrit 41.5 % (41-53); Hemoglobin 13.7 g/dL (13.5-17.5); Lymphocytes Absolute Auto 1500 /uL (1100-4500); Lymphocytes Percent Auto 23.6 % (25-40); Mean Corpuscular HGB Conc 32.9 % (30-36); Mean Corpuscular Hemoglobin 30.2 PG (26-34); Mean Corpuscular Volume 91.7 fL (80-100); Monocytes Absolute Auto 800 /uL (0-900); Monocytes Percent Auto 11.9 % (3-14); Neutrophils Absolute Auto 3900 /uL (1500-7000); Neutrophils Percent Auto 61.3 % (50-75); Platelet Count 253 X10^3/uL (150-400); Red Blood Cell Count 4.52 X10^6/uL (4.5-5.9); Red Cell Distribution Width 14.8 % (11.6-14.8); White Blood Cell Count 6.3 X10^3/uL (4.5-11.0)
[2020-08-17 17:09] LABS: Alanine Aminotransferase 17 IU/L (<50); Albumin 4.3 g/dL (3.5-5.0); Albumin Globulin Ratio 1.4 (1.0-2.8); Alkaline Phosphatase 60 U/L (38-126); Aspartate Aminotransferase 26 IU/L (17-59); Bilirubin Total 0.3 mg/dL (0.2-1.3); Blood Urea Nitrogen 29 mg/dL (9-20); Calcium 9.6 mg/dL (8.4-10.2); Carbon Dioxide 26 mmol/L (22-32); Chloride 106 mmol/L (98-107); Creatine Kinase 135 U/L (55-170); Estimated Glomerular Filt Rate 46.8 mL/min (>60); Glucose 97 mg/dL (80-110); HEMOLYSIS < 15 (0-50); Lipase 177 U/L (23-300); Potassium 4.1 mmol/L (3.4-5.1); Sodium 139 mmol/L (137-145); Total Protein 7.3 g/dL (6.3-8.2)
[2020-08-17 17:20] LABS: Troponin I < 0.012 ng/mL (0.01-0.034)
[2020-08-17 17:24] LABS: Creatine Kinase MB 1.33 ng/mL (<2.37)
[2020-08-17 20:00] VITALS: BP 158/75; PULSE 67; RESP 15; O2SAT 98
[2020-08-17 20:12] LABS: Troponin I < 0.012 ng/mL (0.01-0.034)
--- NOTE | 2020-08-17 20:45 | ED.CHESTPAIN ---
HPI - Chest Pain General Chief Complaint: Chest Pain Stated Complaint: issues with heart, would like it checked Time Seen by Provider: 08/17/20 18:54 Source: patient and family Mode of arrival: Ambulatory History of Present Illness HPI narrative: Patient is a 79-year-old male who is here for evaluation of left-sided chest discomfort. He states that a couple days ago he had left-sided chest pain. Was not worse with palpation or movement. Unsure exactly how long it lasted but it did go away on its own. No shortness of breath at the time. He states he has been symptom-free until today shortly after lunch where he had a recurrence of the symptoms. He is currently asymptomatic. Related Data Home Medications Medication Instructions Recorded Confirmed bmecbdhaka-ysabveqlkwlot-fohtcmbp 1 cap PO Q4-6H PRN 05/20/18 06/08/20 50 mg-300 mg-40 mg capsule (Fioricet) cholecalciferol (vitamin D3) 10 400 unit PO TID 05/20/18 06/08/20 mcg (400 unit) capsule (Vitamin D3) coenzyme Q10 50 mg capsule 50 mg PO QNOON 05/20/18 06/08/20 losartan 50 mg tablet 50 mg PO DAILY 05/20/18 06/08/20 magnesium 250 mg tablet 250 mg PO QPM 05/20/18 06/08/20 tamsulosin 0.4 mg capsule 0.8 mg PO DAILY 05/20/18 06/08/20 vitamin B12 500 mcg-folic acid 400 2 tab PO DAILY 05/20/18 06/08/20 mcg tablet alendronate 70 mg tablet mg PO 06/08/20 06/08/20 gabapentin 600 mg tablet mg PO BID PRN tab 06/08/20 06/08/20 Allergies Allergy/AdvReac Type Severity Reaction Status Date / Time erythromycin base Allergy Severe Hard to Verified 06/08/20 11:33 breath Review of Systems Constitutional Constitutional: Denies chills and Denies fever(s) Eyes Eyes: Reports system reviewed and no additional complaints, except as documented Cardiovascular Cardiovascular: Reports chest pain and Denies dyspnea Respiratory Respiratory: Denies dyspnea Gastrointestinal Gastrointestinal: Denies abdominal pain, Denies nausea and Denies vomiting Genitourinary Genitourinary: Reports system reviewed and no additional complaints, except as documented Musculoskeletal Musculoskeletal: Reports system reviewed and no additional complaints, except as documented Integumentary/Breasts Skin/Breast: Reports system reviewed and no additional complaints, except as documented Neurologic Neurologic: Reports system reviewed and no additional complaints, except as documented Psychiatric Psychiatric: Reports system reviewed and no additional complaints, except as documented Hematologic/Lymphatic Hematologic/Lymphatic: Reports system reviewed and no additional complaints, except as documented On Anticoagulants: No Allergic/Immunologic Allergic/Immunologic: Reports system reviewed and no additional complaints, except as documented Patient History Medical History Ankle sprain Cervicogenic headache Facet arthropathy, cervical Former smoker Fracture of right hand Hearing loss Heartburn History of duodenal ulcer History of headache Hypertension Impaired vision Sleep apnea Upper respiratory infection Surgical History History of facelift (~2004) History of inguinal hernia repair, bilateral (~1999) Social History household members: spouse Smoking Status: Former smoker Smoking Status: Former smoker alcohol intake frequency: a few times a week Substance Use Type: marijuana Exam Initial Vital Signs Initial Vital Signs: Vital Signs Temperature 98.3 F 08/17/20 16:29 Pulse Rate 65 08/17/20 16:29 Respiratory Rate 18 08/17/20 16:29 Blood Pressure 143/86 H 08/17/20 16:29 Pulse Oximetry 97 08/17/20 16:29 Const General: cooperative, healthy appearing and comfortable HENMT Head: normal to inspection and normocephalic Resp Effort & Inspection: not labored and not tachypneic Auscultation: clear to auscultation bilaterally Cardio Rate: regular rate Rhythm: regular rhythm GI Inspection: normal to inspection Palpation: soft Skin General: no rashes or lesions noted Neuro General: patient alert, patient awake and patient oriented x3 Extrem General: normal to inspection and capillary refill normal Psych Appearance: grossly normal Scores HEART Score Heart Score history: Slightly Suspicious Heart Score EKG: Normal Heart Score Age: > or = 65 years old Heart Score risk factors: 1-2 risk factors Heart Score troponin: < or = to normal limit Heart Score Total: 3 Course Orders Ordered: ED Orders 08/17/20 19:43 Troponin I Stat Vital Signs Vital signs: Vital Signs - 8 hr 08/17/20 20:00 08/17/20 20:52 Pulse Rate 67 56 L Respiratory Rate 15 12 Blood Pressure 158/75 H 154/78 H Pulse Oximetry 98 98 MDM - Chest Pain Lab Data Attestation: I reviewed the patient's lab results. Result diagrams: 08/17/20 16:35 08/17/20 16:35 Labs: Lab Results 08/17/20 08/17/20 08/17/20 Range/Units 16:35 16:35 19:43 WBC 6.3 (4.5-11.0) X10^3/uL RBC 4.52 (4.5-5.9) X10^6/uL Hgb 13.7 (13.5-17.5) g/dL Hct 41.5 (41-53) % MCV 91.7 (80-100) fL MCH 30.2 (26-34) PG MCHC 32.9 (30-36) % RDW 14.8 (11.6-14.8) % Plt Count 253 (150-400) X10^3/uL Neut % (Auto) 61.3 (50-75) % Lymph % (Auto) 23.6 L (25-40) % [place] % (Auto) 11.9 (3-14) % Eos % (Auto) 2.4 (2-4) % Baso % (Auto) 0.8 (0-2) % Neut # (Auto) 3900 (9014-3195) /uL Lymph # (Auto) 1500 (9440-9810) /uL [place] # (Auto) 800 (0-900) /uL Eos # (Auto) 200 (0-450) /uL Baso # (Auto) 0 (0-100) /uL Sodium 139 (137-145) mmol/L Potassium 4.1 (3.4-5.1) mmol/L Chloride 106 (98-107) mmol/L Carbon Dioxide 26 (22-32) mmol/L BUN 29 H (9-20) mg/dL Creatinine 1.45 H (0.66-1.25) mg/dL Estimated GFR 46.8 L (>60) mL/min BUN/Creatinine Ratio 20.0 (6-22) Glucose 97 (80-110) mg/dL Calcium 9.6 (8.4-10.2) mg/dL Total Bilirubin 0.3 (0.2-1.3) mg/dL AST 26 (17-59) IU/L ALT 17 (<50) IU/L Alkaline Phosphatase 60 (38-126) U/L Total Creatine Kinase 135 (55-170) U/L CK-MB (CK-2) 1.33 (<2.37) ng/mL CK-MB (CK-2) Rel Index 1.0 L (1.5-5.0) % Troponin I < 0.012 < 0.012 (0.01-0.034) ng/mL Total Protein 7.3 (6.3-8.2) g/dL Albumin 4.3 (3.5-5.0) g/dL Globulin 3.0 (1.7-4.1) g/dL Albumin/Globulin Ratio 1.4 (1.0-2.8) Lipase 177 (23-300) U/L Imaging Data Chest x-ray: Radiologist's Impression: [address] [id number] ReportSigned Patient: Robson Mirza FMR#: [id number]: 1940Acct:[id number]/Sex: 79 / MDate of Service: 08/17/20Loc: EDAccession Number: [id number] Procedure: XR chest 1V Ordering Provider: Kailey Bernard D.O. PROCEDURE: XR CHEST 1V INDICATIONS: chest pain TECHNIQUE: One view of the chest was acquired. COMPARISON: [facility], , XR CHEST 1V, 06/04/2018, 9:00. FINDINGS: Surgical changes and devices: None. Lungs and pleura: Lungs are clear. No pleural effusions or pneumothorax. Mediastinum: Mediastinal contours appear normal. Heart size is normal. Bones and chest wall: No suspicious bony lesions. Overlying soft tissues appear unremarkable. IMPRESSION: No acute pulmonary process. Dictated by: Serenity Palomares M.D. on 08/17/2020 at 16:56 Approved by: Serenity Palomares M.D. on 08/17/2020 at 16:56 ECG Data Attestation: I personally reviewed and interpreted this ECG as follows: Interpretation: Sinus bradycardia Ventricular rate of 59 First degree AV block peer interval 222 milliseconds Normal QRS Normal axis Left anterior fascicular block No ST T wave changes MDM Narrative Medical decision making narrative: Patient is asymptomatic. Has a normal exam. No ST T wave changes on the EKG. Chest x-ray is unremarkable. Has a low risk heart score. Troponins negative x2. I discussed with him the symptoms that brought with him to the emergency department. We did discuss that he does need further risk stratification and he needs to contact his primary doctor for follow-up and to discuss stress test. He was given strict return precautions. He expressed understanding and agreement. Discharge Plan Departure Patient Disposition: Home Clinical Impression: Atypical chest pain Instructions: DI for Atypical Chest Pain Activity Restrictions/Additional Instructions: I recommend that you contact your primary doctor to discuss further workup in to discuss the indications for a stress test. Continue all of your medications as directed. Return to the emergency department for any new or worsening symptoms Prescriptions: No Action losartan 50 mg Tablet 50 mg PO DAILY RF: 0 coenzyme Q10 50 mg Capsule 50 mg PO QNOON RF: 0 tamsulosin 0.4 mg Capsule 0.8 mg PO DAILY RF: 0 magnesium 250 mg Tablet 250 mg PO QPM RF: 0 cholecalciferol (vitamin D3) [Vitamin D3] 400 unit Capsule 400 unit PO TID RF: 0 vitamin F30-dxxbw acid 500-400 mcg Tablet 2 tab PO DAILY RF: 0 ypnczwcljj-klwcqwaimudum-eajp [Fioricet] 50-300-40 mg Capsule 1 cap PO Q4-6H PRN (Reason: neck pain) RF: 0 gabapentin 600 mg TABLET PO BID PRNRF: 0 alendronate 70 mg TABLET PO RF: 0 Referrals: Krish Stallings MD [Primary Care Provider] -
[2020-08-17 20:52] VITALS: BP 154/78; PULSE 56; RESP 12; O2SAT 98
== END 2020-08-17 20:53 | disposition home or self-care (01) ==
PROVIDERS: Emergency Medicine; Emergency Provider Emergency Medicine; PCP Internal Medicine
DX: R07.89 Other chest pain (principal)
CPT/HCPCS: 36415; 71045; 80053; 82550; 82553; 83690; 84484; 85025; 93005; 99284

== ENCOUNTER → 2021-10-06 11:04 | Outpatient (CLI) | payer MEDICARE, BC, SELFPAY ==
--- NOTE | 2021-10-06 | DI.RAD.S_ITS ---
PROCEDURE: XR CHEST 2V INDICATIONS: Other abnormalities of breathing. Fatigue TECHNIQUE: 2 views of the chest were acquired. COMPARISON: [facility], CR, XR CHEST 1V, 08/17/2020, 16:39. [facility], CR, XR CHEST 1V, 06/04/2018, 9:00. FINDINGS: Surgical changes and devices: None. Lungs and pleura: The lungs appear hyperinflated, finding that can be seen in the setting of COPD. No suspicious focal airspace opacity visualized. No pleural effusions or pneumothorax. Mediastinum: Mediastinal contours are normal. Heart size is normal. Bones and chest wall: No suspicious bony abnormalities. Soft tissues appear unremarkable. IMPRESSION: No acute cardiopulmonary abnormality. Dictated by: Nicolas Siddiqi M.D. on 10/06/2021 at 21:34 Approved by: Nicolas Siddiqi M.D. on 10/06/2021 at 21:38
== END ==
PROVIDERS: PCP Internal Medicine; Referring Provider Internal Medicine; Visit Provider Internal Medicine
DX: R06.89 Other abnormalities of breathing (principal); R53.83 Other fatigue
CPT/HCPCS: 71046

== ENCOUNTER → 2021-10-17 11:59 | Outpatient (CLI) | payer MEDICARE, BC, SELFPAY | PROVIDERS: PCP Internal Medicine; Referring Provider Internal Medicine; Visit Provider Internal Medicine | DX: M81.0 Age-related osteoporosis without current pathological fracture (principal); Z13.820 Encounter for screening for osteoporosis | CPT/HCPCS: 77080 ==

== ENCOUNTER → 2022-02-27 08:34 | Outpatient (CLI) | payer MEDICARE, BC, SELFPAY ==
--- NOTE | 2022-02-27 | DI.RAD.S_ITS ---
PROCEDURE: XR ABDOMEN 1V INDICATIONS: Unspecified abdominal pain TECHNIQUE: One view of the abdomen acquired. COMPARISON: [facility], , ABDOMEN 1 VIEW, 02/21/2011, 10:18. FINDINGS: Surgical changes and devices: None. Bowel: Significant fecal stasis in the colon is seen. No gross pneumoperitoneum. 4 mm calcification is noted in lateral right abdomen which may represent a right-sided renal stone. Soft tissues: No suspicious abdominal calcifications. Visualized solid organ contours appear normal in size. Bones: No suspicious bony lesions. IMPRESSION: Moderate constipation. No gross free air. Possible right renal stone as above. Dictated by: Victor Hugo Hogan M.D. on 02/27/2022 at 11:29 Approved by: Victor Hugo Hogan M.D. on 02/27/2022 at 11:29
== END ==
PROVIDERS: PCP Family Medicine; Referring Provider Internal Medicine; Visit Provider Internal Medicine
DX: K59.00 Constipation, unspecified (principal); R10.9 Unspecified abdominal pain
CPT/HCPCS: 74018

== ENCOUNTER → 2022-03-05 09:58 | Outpatient (CLI) | payer MEDICARE, BC, SELFPAY ==
--- NOTE | 2022-03-05 | DI.CT.S_ITS ---
PROCEDURE: CT ABDOMEN PELVIS WO CON INDICATIONS: Calculus of kidney TECHNIQUE: Axial sections were acquired from the lung bases to the pubic symphysis. Coronal and sagittal reformats were performed. For radiation dose reduction, the following was used: automated exposure control, adjustment of mA and/or kV according to patient size. COMPARISON: None. FINDINGS: Image quality: Excellent. Lung bases: Unremarkable. Heart: No significant findings. URINARY: Right Kidney: A nonobstructing 2 mm calculus is present within the right kidney. No hydronephrosis. Right Ureter: No hydroureter. No ureterolithiasis. Left Kidney: No stones or hydronephrosis. Left Ureter: No left hydroureter. No ureterolithiasis. Bladder: Normal wall thickness. No stones. ABDOMEN: Liver: Unremarkable. Gallbladder: Unremarkable. Biliary ducts: Unremarkable. Pancreas: Unremarkable. Spleen: Unremarkable. Adrenal Glands: Unremarkable. Stomach and Bowel: Stomach, small bowel loops, and colon are unremarkable. There are scattered sigmoid diverticula. No evidence for diverticulitis. The appendix is thin walled. Peritoneum: No abnormal intraperitoneal fluid. No free air. Ventral Wall: No hernia. Abdominal Nodes: No enlarged retroperitoneal or mesenteric lymph nodes. Vessels: Aorta and inferior vena cava are normal in size. PELVIS: Pelvic Organs: Unremarkable. Pelvic Nodes: Unremarkable. Miscellaneous: No inguinal hernias are seen. Bones: Unremarkable. IMPRESSION: 1. Nonobstructive right nephrolithiasis. No hydronephrosis, hydroureter, or ureterolithiasis. 2. No acute intra-abdominal findings. Normal appendix. Dictated by: Eula Sharma M.D. on 03/05/2022 at 17:08 Approved by: Eula Sharma M.D. on 03/05/2022 at 17:14
== END ==
PROVIDERS: PCP Family Medicine; Referring Provider Internal Medicine; Visit Provider Internal Medicine
DX: N20.0 Calculus of kidney (principal); K57.30 Diverticulosis of large intestine without perforation or abscess without bleeding
CPT/HCPCS: 74176

== ENCOUNTER → 2022-08-06 11:29 | Outpatient (CLI) | payer MEDICARE, BC, SELFPAY ==
[2022-08-06 12:23] LABS: Add Manual Diff / Slide Review NO; Basophils Absolute Auto 100 /uL (0-100); Basophils Percent Auto 0.9 % (0-2); Eosinophils Absolute Auto 200 /uL (0-450); Eosinophils Percent Auto 2.6 % (2-4); Hematocrit 38.4 % (41-53); Lymphocytes Absolute Auto 1300 /uL (1100-4500); Lymphocytes Percent Auto 21.9 % (25-40); Mean Corpuscular HGB Conc 33.8 % (30-36); Mean Corpuscular Hemoglobin 30.5 PG (26-34); Mean Corpuscular Volume 90.1 fL (80-100); Monocytes Absolute Auto 700 /uL (0-900); Monocytes Percent Auto 11.1 % (3-14); Neutrophils Absolute Auto 3800 /uL (1500-7000); Neutrophils Percent Auto 63.5 % (50-75); Platelet Count 273 X10^3/uL (150-400); Red Blood Cell Count 4.26 X10^6/uL (4.5-5.9); Red Cell Distribution Width 14.2 % (11.6-14.8); White Blood Cell Count 5.9 X10^3/uL (4.5-11.0)
[2022-08-06 12:38] LABS: BUN Creatinine Ratio 21.4 (6-22); Blood Urea Nitrogen 36 mg/dL (9-20); Calcium 9.6 mg/dL (8.4-10.2); Carbon Dioxide 30 mmol/L (22-32); Chloride 102 mmol/L (98-107); Estimated Glomerular Filt Rate 40 mL/min (>60); Glucose 111 mg/dL (80-110); HEMOLYSIS < 15 (0-50); Potassium 4.4 mmol/L (3.4-5.1); Sodium 138 mmol/L (137-145)
[2022-08-06 12:49] LABS: HEMOLYSIS < 15 (0-50); Iron 74 ug/dL (49-181)
[2022-08-06 13:05] LABS: Percent Iron Saturation 21 % (20-50); Total Iron Binding Capacity 353 ug/dL (261-462); Transferrin 260 mg/dL (206-381)
[2022-08-06 13:10] LABS: Ferritin 45 ng/mL (18-464)
[2022-08-06 13:19] LABS: TSH w/ Reflex to FT4 1.62 uIU/mL (0.47-4.68)
[2022-08-06 17:08] LABS: Vitamin D 25 Hydroxy (D3) 79.6 ng/mL (30.0-100.0)
[2022-08-06 18:03] LABS: Creatinine Urine Random 86.1 mg/dL
[2022-08-06 18:09] LABS: Microalbumi Creatinin Ratio Ur 17.4 ug/mg CR (<30); Microalbumin Urine Random 1.5 mg/dL (0-1.6)
== END ==
PROVIDERS: PCP Family Medicine; Referring Provider Family Medicine; Visit Provider Family Medicine
DX: E55.9 Vitamin D deficiency, unspecified (principal); K90.41 Non-celiac gluten sensitivity; R53.83 Other fatigue; L57.0 Actinic keratosis; I10 Essential (primary) hypertension; N18.31 Chronic kidney disease, stage 3a
CPT/HCPCS: 36415; 80048; 82043; 82306; 82570; 82728; 83540; 83550; 84443; 85025

== ENCOUNTER → 2023-06-12 11:13 | Outpatient (CLI) | payer MEDICARE, SELFPAY ==
[2023-06-12 13:14] LABS: Prostate Specific Antigen 4.47 ng/mL (0.10-4.00)
== END ==
PROVIDERS: PCP Family Medicine; Referring Provider Specialist; Visit Provider Specialist
DX: R97.20 Elevated prostate specific antigen [PSA] (principal)
CPT/HCPCS: 36415; 84153

== ENCOUNTER → 2023-08-05 14:10 | Outpatient (CLI) | payer MEDICARE, SELFPAY ==
[2023-08-05 15:02] LABS: Add Manual Diff / Slide Review NO; Basophils Absolute Auto 100 /uL (0-100); Basophils Percent Auto 1.1 % (0-2); Eosinophils Absolute Auto 100 /uL (0-450); Hematocrit 38.4 % (41-53); Hemoglobin 13.2 g/dL (13.5-17.5); Lymphocytes Absolute Auto 1500 /uL (1100-4500); Lymphocytes Percent Auto 25.5 % (25-40); Mean Corpuscular HGB Conc 34.4 % (30-36); Mean Corpuscular Hemoglobin 31.5 PG (26-34); Mean Corpuscular Volume 91.5 fL (80-100); Monocytes Absolute Auto 700 /uL (0-900); Monocytes Percent Auto 11.2 % (3-14); Neutrophils Absolute Auto 3600 /uL (1500-7000); Neutrophils Percent Auto 60.2 % (50-75); Platelet Count 265 X10^3/uL (150-400); Red Blood Cell Count 4.19 X10^6/uL (4.5-5.9); Red Cell Distribution Width 14.5 % (11.6-14.8)
[2023-08-05 15:14] LABS: Alanine Aminotransferase 16 IU/L (<50); Albumin 4.2 g/dL (3.5-5.0); Albumin Globulin Ratio 1.5 (1.0-2.8); Alkaline Phosphatase 60 U/L (38-126); Aspartate Aminotransferase 20 IU/L (17-59); BUN Creatinine Ratio 23.9 (6-22); Bilirubin Total 0.4 mg/dL (0.2-1.3); Blood Urea Nitrogen 34 mg/dL (9-20); Calcium 9.5 mg/dL (8.4-10.2); Carbon Dioxide 29 mmol/L (22-32); Chloride 103 mmol/L (98-107); Estimated Glomerular Filt Rate 49 mL/min (>60); Globulin 2.8 g/dL (1.7-4.1); Glucose 104 mg/dL (80-110); HEMOLYSIS < 15 (0-50); Sodium 137 mmol/L (137-145)
[2023-08-05 15:18] LABS: Hemoglobin A1C% w Est Avg Glu 5.6 % (4.0-6.0); High Sensitivity CRP - Cardiac 1.7 mg/L (1.0-3.0)
[2023-08-05 17:25] LABS: Creatinine Urine Random 85.46 mg/dL; Protein (Total) Urine Random 9 mg/dL (0-12)
[2023-08-08 08:13] LABS: PSA Free % 25.7 % (.); PSA, Total 3.7 ng/mL (0.0-4.0)
== END ==
PROVIDERS: PCP Family Medicine; Referring Provider Family Medicine; Visit Provider Family Medicine
DX: D64.9 Anemia, unspecified (principal); R35.1 Nocturia; N18.31 Chronic kidney disease, stage 3a; R73.9 Hyperglycemia, unspecified; R97.20 Elevated prostate specific antigen [PSA]; K90.41 Non-celiac gluten sensitivity
CPT/HCPCS: 36415; 80053; 82570; 83036; 84153; 84154; 84156; 85025; 86140

== ENCOUNTER → 2023-11-12 10:49 | Outpatient (CLI) | payer MEDICARE, SELFPAY ==
[2023-11-13 13:12] LABS: PSA Free % 24.1 % (.); PSA, Total 3.9 ng/mL (0.0-4.0)
== END ==
PROVIDERS: PCP Family Medicine; Referring Provider Urology; Visit Provider Urology
DX: N40.1 Benign prostatic hyperplasia with lower urinary tract symptoms (principal); N13.8 Other obstructive and reflux uropathy
CPT/HCPCS: 36415; 84153; 84154

== ENCOUNTER → 2024-03-02 13:57 | Outpatient (CLI) | payer MEDICARE, SELFPAY | PROVIDERS: PCP Family Medicine; Visit Provider Urology | DX: Z01.818 Encounter for other preprocedural examination (principal); N40.1 Benign prostatic hyperplasia with lower urinary tract symptoms; N13.8 Other obstructive and reflux uropathy; R97.20 Elevated prostate specific antigen [PSA] | CPT/HCPCS: 87086; 99214 ==

== ENCOUNTER 2024-03-09 08:32 | Day surgery (SDC) | payer MEDICARE, SELFPAY ==
[2024-03-03 13:42] VITALS: BMI 22.8
[2024-03-09] VITALS (9 sets, daily range): BP systolic 95–151; BP diastolic 59–91; PULSE 77–130; RESP 10–16; TEMP 36.3–37.2; O2SAT 10–99; BMI 22.8
--- NOTE | 2024-03-09 | PATH_ITS ---
[facility] Accession Number: [id number] No. of containers..01 Tissue . 01 Material submitted: . prostate - PROSTATE CHIPS . 01 Diagnosis: PROSTATE CHIPS, TRANSURETHRAL PROSTATE TISSUE RESECTION: Benign prostatic parenchyma, weight 10 grams, with glandular and stromal hypertrophy. Mild chronic prostatitis also present. Negative for atypia or invasive carcinoma. Overlying urothelial mucosa without abnormalities. MRV 03/11/2024 1354 Local . 01 Electronically signed: . Femi Lu MD, Pathologist NPI- [id number] . 01 Gross description: . Received in formalin with two patient identifiers and prostate chips, and consists of a 4.0 x 2.5 x 1.8 cm, 10 gram aggregate of cook-brown, rubbery, focally cauterized morcellated tissue admixed with clotted blood. The specimen is entirely submitted in cassettes A1-A4. ([id number]) /MRV 03/10/2024 1903 Local . 01 Pathologist provided ICD-10: N40.1 . 01 CPT . 205066 Specimen Comment: A courtesy copy of this report has been sent to [facility] Pathology Performed at: [address] [address], [place], [place] [id number] MD Reagan Potter MD Phone: [phone]
[2024-03-09] MEDS: LACTATED RINGERS 1,000 ML 21 ML IV (09:13)
--- NOTE | 2024-03-09 09:20 | PM.PREOP ---
Pre-operative Note COVID-19 COVID-19 status: Not tested Interval Note History & Physical reviewed/Exam performed by Physician: Yes Changes to H&P: No
[2024-03-09] MEDS: CEFAZOLIN 2 GM/100 ML PREMIX 100 ML IV (09:49)
--- NOTE | 2024-03-09 10:05 | SUR.OPER ---
Lithotomy on padded OR bed, head on pillow, arms secured on padded arm boards at <90 degrees abduction. Legs secured in padded yellow fins stirrups.
--- NOTE | 2024-03-09 11:13 | EKG_ITS ---
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
--- NOTE | 2024-03-09 11:26 | P.OP_ITS ---
Procedure & Clinicians Procedure: Cystoscopy Aquablation Same procedure as scheduled: Yes Indications: 83 y/o M noted to have symptoms consistent w/ BPH and LUTS that are currently managed with Tamsulosin 0.8mg daily. He is not completely happy with his urinary habits at the moment and would strongly desires surgical intervention via an Aquablation procedure. Surgeon: Janak Glez Click Yes if Unassisted: Yes Anesthesia Type: General Operative Notes Findings: Coaptating lateral prostatic lobes, no intravesical median lobe Closure Type: non-primary Specimen(s): other (prostate chips) Applied: catheter Estimated Blood Loss (mL): 20 Blood products transfused: none Procedure in detail: After informed consent was obtained, the patient was identified brought to the operating room where he was placed in his supine position on the table.? Once there anesthesia was induced and maintained.? Ensuring an adequate level of anesthesia the patient was transitioned to the lithotomy position where after time-out he was prepped.? After prepping, ensuring an adequate level of anesthesia, administration IV antibiotics and time-out 60 cc of ultrasound gel was instilled within the rectum and the ultrasound probe which had been attached to the TRUS stepper which was attached to the TRUS stepper articulating arm which was secured to the bed was advanced into the rectum under direct vision via the ultrasound.? The ultrasound probe was then aligned and confirmation made that the prostate was centered and aligned in both the sagittal and transverse v iews.? The bladder neck, verumontanum, central and transitional zones were identified.? With the ultrasound in place and adjusted the patient was then draped in a sterile fashion. With the patient draped the 24 Uzbek aqua beam handpiece was then inserted through the urethra and advanced into the bladder.? Cystoscopy was then performed and no concerning bladder mass or lesions were noted.? Bilateral ureteral orifices were noted to be orthotopic in nature.? As the cystoscope was advanced the level of the sphincter, verumontanum, bladder neck were all identified via ultrasound and under direct vision.? The aqua beam hand place was then secured to the handpiece articulating arm which had been secured to the bed.? The Aquablation handpiece and TRUS probe were confirmed to be parallel and colinear.? Confirmation was then made that the aqua beam handpiece and nozzle was centered and anterior to the bladder neck. ?The cystoscope was then retracted under direct vision in the sphincter and verumontanum were identified.? The tip of the cystoscope was then placed proximal to the external sphincter.? Compression was applied with the TRUS probe to the prostate.? The alignment of the TRUS probe and aqua beam handpiece was once again confirmed.? Horizontal alignment of the handpiece water jet was then performed.? With these adjustments made, the treatment zones were then planned using real-time ultrasound.? In the largest transverse view of the prostate the depth and radial angles were determined and set again in the transverse view of the prostate.? In the longitudinal and sagittal view the Aquablation nozzle was identified and its position registered with the software and robot.? The treatment contours were then determined and adjusted to reflect the intended margins of resection.? Following our plan confirmation, the Aquablation resection treatment was started.? A 2nd pass was then completed in similar fashion after the 1st pass had been completed.? At this point, the Aqua hand piece was removed from the urethra. The 26Fr resectoscope was then inserted into the urethra and cystoscopy was repeated.? The Elik electronic organ technician was utilized to evacuate the blood clots from the bladder.? The bladder neck was then resected using the bipolar Gyrus loop.? Bilateral ureteral orifices were again identified and noted to be intact at case end.? Hemostasis was obtained and noted to be excellent at case end.? The resectoscope was then removed and a 22Fr Beverly 3-way hematuria catheter was inserted through the urethra and into the bladder.? 45cc of sterile water was utilized for balloon insufflation.? Efflux was noted to be clear at case end.? Anesthesia was reversed, he was extubated in the OR and transferred to the PACU in stable condition for recovery. Complications: none Post-operative Condition: stable Disposition: PACU Plan for aftercare: Will continue to run CBI for a few hours to evaluate the efflux from his catheter.? Should it remain relatively clear and with minimal blood clots, will discharge home with catheter in place and have him return to Urology clinic in 2 days for a voiding trial.? Should his efflux remain red or have significant clot burden, will admit overnight for observation and continued CBI.
[2024-03-09] MEDS: ACETAMINOPHEN 325 MG TABLET 650 MG PO (11:59)
[2024-03-09] MEDS: OXYCODONE IR 5 MG TABLET PO (13:14)
== END 2024-03-09 14:30 | disposition home or self-care (01) ==
PROVIDERS: PCP Family Medicine; Referring Provider Urology; Visit Provider Urology
PROC: 0VT08ZZ Resection of Prostate, Via Natural or Artificial Opening Endoscopic (ICD-10-PCS; CPT 52597; principal; 2024-03-09 09:45)
DX: N40.1 Benign prostatic hyperplasia with lower urinary tract symptoms (principal); N13.8 Other obstructive and reflux uropathy; N41.1 Chronic prostatitis; R39.12 Poor urinary stream; R35.0 Frequency of micturition; R35.1 Nocturia; R33.9 Retention of urine, unspecified; R97.20 Elevated prostate specific antigen [PSA]; I10 Essential (primary) hypertension; G47.33 Obstructive sleep apnea (adult) (pediatric); Z87.891 Personal history of nicotine dependence
CPT/HCPCS: 0421T; 93005; C2596; J0690; J1100; J2405; J2704; J3010; J3490

== ENCOUNTER → 2024-03-30 12:54 | Outpatient (CLI) | payer MEDICARE, SELFPAY ==
[2024-03-30 13:36] LABS: Appearance Urine UA CLOUDY; Bilirubin Urine UA NEGATIVE (NEGATIVE); Color Urine UA ORANGE; Glucose Urine UA NEGATIVE (Negative); Ketones Urine UA NEGATIVE (NEGATIVE); Leukocyte Esterase Urine UA TRACE (NEGATIVE); Nitrite Urine UA NEGATIVE (Negative); Occult Blood Urine UA 3+ (Negative); Protein Urine UA 1+ (Negative); Specific Gravity Urine UA 1.015 (1.000-1.035); Urobilinogen Urine UA 0.2 E.U./dL (0.2)
[2024-03-30 13:43] LABS: Bacteria Urine None Seen; Culture Indicated Urine Cult Not Indicated; RBC Urine 30-100/HPF (0-5/HPF); Squamous Epithelial Cell Urine None Seen (0-5/HPF); Urine Volume 10mL (spun); WBC Urine 0-1/HPF (0-5/HPF)
[2024-03-30 13:44] LABS: Hematocrit 38.1 % (41-53); Hemoglobin 12.7 g/dL (13.5-17.5)
== END ==
PROVIDERS: PCP Family Medicine; Referring Provider Urology; Visit Provider Urology
DX: R31.0 Gross hematuria (principal)
CPT/HCPCS: 81001; 85014; 85018

== ENCOUNTER → 2024-04-22 10:05 | Outpatient (CLI) | payer MEDICARE, SELFPAY | PROVIDERS: PCP Family Medicine; Visit Provider Urology | DX: R31.0 Gross hematuria (principal); R35.0 Frequency of micturition | CPT/HCPCS: 87086 ==

== ENCOUNTER → 2024-07-22 09:19 | Outpatient (CLI) | payer MEDICARE, SELFPAY ==
[2024-07-22 10:40] LABS: Prostate Specific Antigen 3.02 ng/mL (0.10-4.00)
== END ==
PROVIDERS: PCP Family Medicine; Referring Provider Urology; Visit Provider Urology
DX: R97.20 Elevated prostate specific antigen [PSA] (principal)
CPT/HCPCS: 36415; 84153

== ENCOUNTER → 2024-08-03 07:13 | Outpatient (CLI) | payer MEDICARE, SELFPAY ==
[2024-08-03 08:01] LABS: Add Manual Diff / Slide Review NO; Basophils Absolute Auto 100 /uL (0-100); Basophils Percent Auto 1.3 % (0-2); Eosinophils Absolute Auto 200 /uL (0-450); Eosinophils Percent Auto 4.1 % (2-4); Hematocrit 40.1 % (41-53); Hemoglobin 13.3 g/dL (13.5-17.5); Lymphocytes Absolute Auto 1600 /uL (1100-4500); Lymphocytes Percent Auto 30.2 % (25-40); Mean Corpuscular HGB Conc 33.1 % (30-36); Mean Corpuscular Hemoglobin 30.4 PG (26-34); Mean Corpuscular Volume 91.8 fL (80-100); Monocytes Absolute Auto 700 /uL (0-900); Monocytes Percent Auto 13.1 % (3-14); Neutrophils Absolute Auto 2700 /uL (1500-7000); Neutrophils Percent Auto 51.3 % (50-75); Platelet Count 243 X10^3/uL (150-400); Red Blood Cell Count 4.36 X10^6/uL (4.5-5.9); Red Cell Distribution Width 14.6 % (11.6-14.8); White Blood Cell Count 5.2 X10^3/uL (4.5-11.0)
[2024-08-03 08:25] LABS: Alanine Aminotransferase 24 IU/L (<50); Albumin 4.2 g/dL (3.5-5.0); Albumin Globulin Ratio 1.7 (1.0-2.8); Alkaline Phosphatase 67 U/L (38-126); Aspartate Aminotransferase 31 IU/L (17-59); BUN Creatinine Ratio 21.2 (6-22); Bilirubin Total 0.5 mg/dL (0.2-1.3); Blood Urea Nitrogen 31 mg/dL (9-20); Calcium 9.1 mg/dL (8.4-10.2); Carbon Dioxide 28 mmol/L (22-32); Chloride 102 mmol/L (98-107); Estimated Glomerular Filt Rate 47 mL/min (>60); Globulin 2.5 g/dL (1.7-4.1); Glucose 95 mg/dL (70-99); HEMOLYSIS < 15 (0-50); Sodium 136 mmol/L (137-145); Total Protein 6.7 g/dL (6.3-8.2)
[2024-08-03 08:54] LABS: Prostate Specific Antigen Scrn 2.31 ng/mL (0.1-4.0)
[2024-08-03 08:58] LABS: Ferritin 32 ng/mL (18-464)
[2024-08-03 09:09] LABS: Creatinine Urine Random 81.23 mg/dL; Protein (Total) Urine Random 16 mg/dL (0-12); Protein Creatinine Ratio Urine 0.19 GRAM/24H
== END ==
PROVIDERS: PCP Family Medicine; Referring Provider Family Medicine; Visit Provider Family Medicine
DX: N13.8 Other obstructive and reflux uropathy (principal); D64.9 Anemia, unspecified; Z12.5 Encounter for screening for malignant neoplasm of prostate; N40.1 Benign prostatic hyperplasia with lower urinary tract symptoms; R97.20 Elevated prostate specific antigen [PSA]; R53.83 Other fatigue; N18.31 Chronic kidney disease, stage 3a
CPT/HCPCS: 36415; 80053; 82570; 82728; 84156; 85025; G0103

== ENCOUNTER 2025-01-19 08:15 | Outpatient (RCR) | payer MEDICARE, SELFPAY ==
--- NOTE | 2024-11-18 15:06 | PT.OIE ---
Current Diagnoses Overactive bladder (11/18/24) Past Medical History (Last Reviewed 10/05/24 @ 09:58 by Janak Glez DO) Acne (~1953) Actinic keratosis (~1999) Ankle sprain BPH (benign prostatic hyperplasia) (~1997) BPH w urinary obs/LUTS Cataracts, bilateral (~2009) Cervicogenic headache Chicken pox (~1947) Facet arthropathy, cervical Former smoker Fracture of right hand (~2004) Gluten enteropathy Hearing loss (~2002) Heartburn History of duodenal ulcer History of elevated PSA History of headache (~1946) Hx of migraine headaches Hx of primary hypertension Impaired vision Kidney disease Measles (~194) Osteopenia (~2009) Osteoporosis (~2015) Peptic ulcer disease (~1962) Skin cancer Sleep apnea Upper respiratory infection Wears glasses Past Surgical History (Last Reviewed 10/05/24 @ 09:58 by Janak Glez DO) Anesthesia Deviated septum (~1998) History of facelift (~2004) History of hand surgery (~2005) History of inguinal hernia repair, bilateral (~1999) Hx of circumcision S/P excision of acoustic neuroma (~2004) [place] teeth removed Visit Care Team Role Provider Type Sheela Garrison DO Family Provider Physician Primary Care Provider Specialty: Medical Address: [address] [place] [address], [address], [address] Email: [email or web address] Janak Glez DO Attending Provider Physician Referring Provider Specialty: Urology Address: [address] [place] [address], [address] Fax: Email: [email or web address] Physical Therapy Initial Evaluation PT OP: Pelvic Health Start: 11/18/24 09:01 Freq: Status: Active Protocol: Document 11/18/24 09:02 [facility] (Rec: 11/18/24 09:45 [facility] [id number]) Out-Patient Physical Therapy Visit Information Visit Information Visit Type Initial Evaluation Visit Start Time 09:00 Visit Stop Time 09:45 Visit Number 1 Evaluation Information Evaluation Date 11/18/24 Current Condition History of Current Condition Onset Date chronic Current Complaints urinary frequency, urgency, nocturia History of Current 84 year old male with chief c/o frequency, urgency of Condition urination and nocturia. He is s/p aquablation procedure on 03/11/24 He reports he will have a strong urge to go and he will only get 2-3 oz of urine out. He notes he has to take THC in order to be able to void more At night time he wakes 3-4 times per night and if he tries to stay hydrated its up to 5 times. He has a history of Sleep apnea and he wears a nose pillow It feels more difficult to empty at night and he experiences more dribbling than a regular stream. he wears a thin pad and he does wear a pad during the day. if he sits for a period of time then he will get a sudden urge and he has leaked with this but has worked around it. day time emptying 6-8 times per day. Hip Goniometric Range of Motion Hip Right Flexion w/Knee 90 Flexed External Rotation 15 Left Flexion w/Knee 90 Flexed External Rotation 15 Hip ROM Limitations Hip ROM Limitations Soft Tissue Tightness Comments tightness bilaterally with hip ER and hip flexion Therapeutic Exercises Supine Exercises piriformis stretch Reps/Minutes hold 30 sec to 1 min 2 Supine Exercise Name happy baby Reps/Minutes hold 30 sec to 1 min 1 Supine Exercise Name modified pelvic floor squat Side bilateral Reps/Minutes hold 30 sec to 1 min Self-Care/Home Management Treatment Education Other Education pt was educated in the urge deference technique and bladder retraining and was given a bladder diary for home to record voids for the next 2 weeks Physical Therapy Assessment Rehab Potential Rehabilitation Good Potential Evaluation Complexity Number of Personal 0 Factors/ Comorbidities Number of Body 1-2 Systems Impaired Clinical Stable Presentation at Evaluation Impairments Impairments Activity Tolerance,Functional Activities,Soft Tissue Mobility,Strength Goals 3 Impairment tightness of the hips and pelvic floor tightness Flipping Machine Operator Goal (LTG) Simon is independent with a HEP for pelvic floor stretches to help improve his ability to fully empty his bladder LTG Duration 12 weeks 2 Impairment urinary urgency and frequency throughout the day Short Term Goal (STG Simon is educated on the urge deference technique and ) bladder retraining STG Duration 4 weeks Flipping Machine Operator Goal (LTG) Simon reports a overall reduction of urinary urgency and frequency 1 Impairment nocturia 3-4 times per night with slow hesitant urinary stream Chcf Goal (LTG) Simon reports a reduction of nocturia down to 1-2 times per night LTG Duration 12 weeks Assessment Summary Assessment Simon is a 84 year old male s/p aquablation procedure for BPH and bothersome LUTS symptoms. He reports since the aquablation he is no longer feeling pain with voiding but his frequency, urgency, and nocturia symptoms have persisted. He reports he feels he has always had a small bladder and he remembers as a child having to wake at night to void. He reports he grew up drinking sweet tea in [place] and would drink tea at night and he feels this contributed to his symptoms as at child. He is aware of bladder irritants and is trying to drink a water throughout the day. He does have a 12 oz mocha in am and one tea in afternoon and is careful to taper fluids as day progresses. He reports he is voiding a small amount at at time but if he takes a THC gummy it relaxes him and he is better able to void. Time was spent today educating Simon on the urge deference technique and bladder retraining. He was given a bladder log to track his voids and fluid intake for the next 2 weeks. He was shown pelvic floor stretches and educated on relaxing his pelvic floor using a squatty potty for voiding to assist with fully emptying his bladder. He may benefit from EMG biofeedback working on pelvic floor endurance training as well as relaxed awareness of the pelvic floor. Simon is a good candidate for PT Physical Therapy Plan Frequency and Duration Frequency of 1x/Week Treatment Duration of 12 treatment (weeks) Plan of Care Start 11/18/24 Date Plan of Care End 02/10/25 Date Therapeutic Interventions Therapeutic Home Exercise Program,Neuromuscular Re-education, Interventions Patient/Caregiver Education,Self-Care/Home Management, Therapeutic Exercises Modalities Biofeedback Next Visit Focus/Plan Next Note Type Treatment Note Next Visit Plan review bladder diary, review urge deference technique, review pelvic stretches and how pt did with using a squatty potty. consider EMG biofeedback for relaxed awareness of the pelvic floor
--- NOTE | 2024-11-25 12:55 | PT.OTN ---
Current Diagnoses Overactive bladder (11/25/24) Physical Therapy Treatment Note PT OP: Pelvic Health Start: 11/18/24 09:01 Freq: Status: Active Protocol: Document 11/25/24 09:05 [facility] (Rec: 11/25/24 09:44 [facility] [id number]) Out-Patient Physical Therapy Visit Information Visit Information Visit Type Treatment Note Visit Start Time 09:05 Visit Stop Time 09:43 Visit Number 2 OP-PT Subjective Patient Comments Patient Comments pt reports he was keeping track of his voids and at first he was able to control the urge really well. But then he was under some stress and the urgency was worse. The first couple of days he was able to go every 2 hours. Most of the time when he voided he was only voiding 2 oz, he has gotten up to 3-4 oz. The last 2 nights he has only gotten up two times to void. Therapeutic Exercises Supine Exercises pelvic floor long holds Reps/Minutes 10 reps holding 10 seconds and relaxing 10 seconds piriformis stretch Reps/Minutes hold 30 sec to 1 min x 2 reps 2 Supine Exercise Name happy baby Reps/Minutes hold 30 sec to 1 min 1 Supine Exercise Name modified pelvic floor squat Side bilateral Reps/Minutes hold 30 sec to 1 min Self-Care/Home Management Treatment Education Patient Education Home Exercise Program Other Education review of urge deference technique and bladder retraining, Simon was given a HEP Physical Therapy Assessment Goals 3 Impairment tightness of the hips and pelvic floor tightness Black Jack Dealer Goal (LTG) Simon is independent with a HEP for pelvic floor stretches to help improve his ability to fully empty his bladder LTG Duration 12 weeks 2 Impairment urinary urgency and frequency throughout the day Short Term Goal (STG Simon is educated on the urge deference technique and ) bladder retraining STG Duration 4 weeks Correction Goal (LTG) Simon reports a overall reduction of urinary urgency and frequency 1 Impairment nocturia 3-4 times per night with slow hesitant urinary stream Black Jack Dealer Goal (LTG) Simon reports a reduction of nocturia down to 1-2 times per night LTG Duration 12 weeks Assessment Summary Assessment Simon did notice with urge technique was helpful, in times of stress he has more urge. WE discussed this and how the bladder is connected to the sympathetic nervous system. I added in pelvic floor long holds and EMG biofeedback was described to him as a option for next visit Physical Therapy Plan Frequency and Duration Frequency of 1x/Week Treatment Duration of 12 treatment (weeks) Plan of Care Start 11/18/24 Date Plan of Care End 02/10/25 Date Next Visit Focus/Plan Next Note Type Treatment Note Next Visit Plan review bladder diary, review urge deference technique, review pelvic stretches and pelvic floor long holds consider EMG biofeedback for relaxed awareness of the pelvic floor
--- NOTE | 2024-12-02 12:49 | PT.OTN ---
Current Diagnoses Overactive bladder (12/02/24) Physical Therapy Treatment Note PT OP: Pelvic Health Start: 11/18/24 09:01 Freq: Status: Active Protocol: Document 12/02/24 09:05 [facility] (Rec: 12/02/24 09:23 [facility] [id number]) Out-Patient Physical Therapy Visit Information Visit Information Visit Start Time 09:05 Visit Stop Time 09:40 Visit Number 3 OP-PT Subjective Patient Comments Patient Comments pt notes the last couple of nights he voided 8 oz twice in the night and the last couple of evenings the urge tapers off and he has gone 5 hours without voiding and will void 5 oz. He is voiding 3-4 ounces now and voiding every 2-3 hours. The last 2-3 nights he has gotten up 2 times per night he did note a small amount of leakage but just a little bit and not like it was before. Therapeutic Exercises Supine Exercises pelvic floor long holds Reps/Minutes 10 reps holding 10 seconds and relaxing 10 seconds piriformis stretch Reps/Minutes hold 30 sec to 1 min x 2 reps 2 Supine Exercise Name happy baby Reps/Minutes hold 30 sec to 1 min 1 Supine Exercise Name modified pelvic floor squat Side bilateral Reps/Minutes hold 30 sec to 1 min Standing Exercises sit to stand with pelvic floor engagement Reps/Minutes s 10 reps standing squats Comments engge pelvic floor on the way up Self-Care/Home Management Treatment Education Patient Education Home Exercise Program Other Education handouts given for new exercises of sit-stand and standing squats with pelvic floor engagement Physical Therapy Assessment Goals 3 Impairment tightness of the hips and pelvic floor tightness Chcf Goal (LTG) Simon is independent with a HEP for pelvic floor stretches to help improve his ability to fully empty his bladder LTG Duration 12 weeks 2 Impairment urinary urgency and frequency throughout the day Short Term Goal (STG Simon is educated on the urge deference technique and ) bladder retraining STG Duration 4 weeks Chcf Goal (LTG) Simon reports a overall reduction of urinary urgency and frequency 1 Impairment nocturia 3-4 times per night with slow hesitant urinary stream Chcf Goal (LTG) Simon reports a reduction of nocturia down to 1-2 times per night LTG Duration 12 weeks Assessment Summary Assessment Simon is making good progress towards his goals as nocturia is decreasing and he is successfully able to increase time between voids during the day. He is noting improved volume of urine and very minor leakage only. I added in sit-stand with pelvic floor engagement and standing squats to his HEP Physical Therapy Plan Frequency and Duration Frequency of 1x/Week Treatment Duration of 12 treatment (weeks) Plan of Care Start 11/18/24 Date Plan of Care End 02/10/25 Date Next Visit Focus/Plan Next Note Type Treatment Note Next Visit Plan check in with voiding intervals and review new exercises, add in clam shells
--- NOTE | 2024-12-31 08:43 | PT-OP ANOTE ---
I called and spoke with Simon this am regarding his no show and he stated he forgot as he has a cataract surgery tomorrow and was thinking about that. I confirmed his next appt Saturdayjanuary 05 at 9:00
--- NOTE | 2025-01-05 17:11 | PT.OPPN ---
Current Diagnoses Overactive bladder (01/05/25) Physical Therapy Progress Note PT OP: Pelvic Health Start: 11/18/24 09:01 Freq: Status: Active Protocol: Document 01/05/25 08:59 [facility] (Rec: 01/05/25 09:18 [facility] [id number]) Out-Patient Physical Therapy Visit Information Visit Information Visit Type Progress Note Visit Start Time 08:55 Visit Stop Time 09:33 Visit Number 4 OP-PT Subjective Patient Comments Patient Comments he has notes in the am he will void 3-4 ounces but later in the day its better up to 5 ounces. HE is drinking 8 oz of water when he first gets up. He notes when he is sitting he will notice some leakage . He it typically going every 2 hours but sometimes a hour. He still feels like he has to pulse a few times to fully empty his bladder At night it is 8 oz he is voiding which is better. pt reports that 4 days after this drainage tube came out after surgery he was at [facility] and all of a sudden he sneezed and it caused a severe spasm and after that he noticed more blood with voiding. HE is wondering if he has some scar tissue that may be blocking the urethra as he still has to pulse with voiding. Simon would like to recheck in with Dr Forrester Therapeutic Exercises Supine Exercises pelvic floor long holds Reps/Minutes 10 reps holding 10 seconds and relaxing 10 seconds piriformis stretch Reps/Minutes hold 30 sec to 1 min x 2 reps 2 Supine Exercise Name happy baby Reps/Minutes hold 30 sec to 1 min 1 Supine Exercise Name modified pelvic floor squat Side bilateral Reps/Minutes hold 30 sec to 1 min Self-Care/Home Management Treatment Education Patient Education Home Exercise Program Other Education review of HEP, pelvic floor relaxation for voiding, stretches for the pelvic floor, urge deference technique Physical Therapy Assessment Goals 3 Impairment tightness of the hips and pelvic floor tightness Union Laborer Goal (LTG) Simon is independent with a HEP for pelvic floor stretches to help improve his ability to fully empty his bladder LTG Duration 12 weeks 2 Impairment urinary urgency and frequency throughout the day Short Term Goal (STG Simon is educated on the urge deference technique and ) bladder retraining STG Duration 4 weeks Prison Goal (LTG) Simon reports a overall reduction of urinary urgency and frequency 1 Impairment nocturia 3-4 times per night with slow hesitant urinary stream Union Laborer Goal (LTG) Simon reports a reduction of nocturia down to 1-2 times per night LTG Duration 12 weeks Assessment Summary Assessment Simon is doing better and nocturia is decreased however he continues to feel that he is not fully able to empty his bladder and he would like to check back in with DR. Glez. He feels that when he experienced the violent sneeze a few days after drain tube was taken out that he may have created scar tissue at the urethra as he caused additional bleeding after that. He is still feeling that urethra is blocked. He has one visit in PT left to ensure Harvey with his HEP Physical Therapy Plan Frequency and Duration Frequency of 1x/Week Treatment Duration of 12 treatment (weeks) Plan of Care Start 11/18/24 Date Plan of Care End 02/10/25 Date Next Visit Focus/Plan Next Note Type Treatment Note Next Visit Plan check in with voiding intervals and review new exercises, add in clam shells
--- NOTE | 2025-01-19 16:34 | PT.OPDS ---
Current Diagnoses Overactive bladder (01/19/25) Visit Care Team Role Provider Type Sheela Garrison DO Family Provider Physician Primary Care Provider Specialty: Medical Address: [address] [place] [address], [address], [place], [address] Email: [email or web address] Janak Glez DO Attending Provider Physician Referring Provider Specialty: Urology Address: [address] [place] [address], [place], [address] Fax: Email: [email or web address] Visit Number Visit Number 5 Discharge Summary PT OP: Pelvic Health Start: 11/18/24 09:01 Freq: Status: Active Protocol: Document 01/19/25 08:24 [facility] (Rec: 01/19/25 08:51 [facility] [id number]) Out-Patient Physical Therapy Visit Information Visit Information Visit Type Treatment Note Visit Start Time 08:20 Visit Stop Time 09:00 Visit Number 5 OP-PT Subjective Patient Comments Patient Comments Simon reports he has been working on his pelvic floor exercises and stretches. He notes he has had a little more leakage. He is voiding 2-3 oz when he first gets up then after he has been up it is usually a little more that he is voiding up to 5 oz but still very limited voiding amount. Some nights he gets up one time and some nights he gets up 3 times. He reports sometimes the urge technique works well and sometimes it doesn't work well. The leakage is intermittent and he is wearing the smallest pad. Some days he will go a full day without leakage. He notes he has appt with Dr. Glez in February to go over symptoms. Therapeutic Exercises Supine Exercises pelvic floor long holds Reps/Minutes 10 reps holding 10 seconds and relaxing 10 seconds 2 Supine Exercise Name happy baby Reps/Minutes hold 30 sec to 1 min 1 Supine Exercise Name modified pelvic floor squat Side bilateral Reps/Minutes hold 30 sec to 1 min Standing Exercises sit to stand with pelvic floor engagement Reps/Minutes s 10 reps standing squats Comments engge pelvic floor on the way up Self-Care/Home Management Treatment Education Patient Education Home Exercise Program Other Education urge deference technique and bladder retraining Physical Therapy Assessment Goals 3 Impairment tightness of the hips and pelvic floor tightness Oxyhydrogen Welder Goal (LTG) Simon is independent with a HEP for pelvic floor stretches to help improve his ability to fully empty his bladder goal met LTG Duration 12 weeks 2 Impairment urinary urgency and frequency throughout the day Short Term Goal (STG Simon is educated on the urge deference technique and ) bladder retraining goal met STG Duration 4 weeks Mcfp Goal (LTG) Simon reports a overall reduction of urinary urgency and frequency urgency is still intermittent 1 Impairment nocturia 3-4 times per night with slow hesitant urinary stream Oxyhydrogen Welder Goal (LTG) Simon reports a reduction of nocturia down to 1-2 times per night Simon reports intermittent symptoms with nocturia LTG Duration 12 weeks Assessment Summary Assessment Simon is doing better and nocturia is decreased however he continues to feel that he is not fully able to empty his bladder and he would like to check back in with DR. Glez. He feels that when he experienced the violent sneeze a few days after drain tube was taken out that he may have created scar tissue at the urethra as he caused additional bleeding after that. He is still feeling that he is not able to fully void. At this point he is independent with his HEP and will be discharged from PT Physical Therapy Plan Discharge Physical Therapy Discharge Reasons Plateau in Progress
== END 2025-01-25 13:19 | disposition home or self-care (01) ==
LOC: PHYS 08:15
PROVIDERS: Family Provider Family Medicine; PCP Family Medicine; Referring Provider Urology; Visit Provider Urology
DX: N32.81 Overactive bladder (principal)
CPT/HCPCS: 97110; 97161; 97535

== ENCOUNTER → 2025-02-03 10:42 | Outpatient (CLI) | payer MEDICARE, SELFPAY ==
--- NOTE | 2025-02-03 10:44 | DI.RAD.S_ITS ---
PROCEDURE: XR CERVICAL SPINE 4V OR 5V INDICATIONS: NECK PAIN TECHNIQUE: 5 views of the cervical spine acquired. COMPARISON: [facility], CR, XR CERVICAL SPINE 4V OR 5V, 06/07/2020, 9:41. FINDINGS: Bones: No fractures or dislocations to the T1 level. Loss of disc height, degenerative endplate changes and bilateral facet hypertrophic changes are noted throughout cervical spine. Oblique images demonstrate left worse than right bilateral bony foraminal stenosis at C3-4 through C6-7 levels. Soft tissues: No prevertebral soft tissue swelling. 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 No acute fracture or dislocation. Left worse than right bilateral bony foraminal stenosis as above. Dictated by: Victor Hugo Hogan M.D. on 02/03/2025 at 11:09 Approved by: Victor Hugo Hogan M.D. on 02/03/2025 at 11:10
[2025-02-03 12:32] LABS: Add Manual Diff / Slide Review NO; Hematocrit 40.8 % (41-53); Hemoglobin 13.9 g/dL (13.5-17.5); Lymphocytes Absolute Auto 1300 /uL (1100-4500); Mean Corpuscular HGB Conc 34.1 % (30-36); Mean Corpuscular Hemoglobin 31.2 PG (26-34); Mean Corpuscular Volume 91.6 fL (80-100); Platelet Count 271 X10^3/uL (150-400)
[2025-02-03 13:54] LABS: Ferritin 50 ng/mL (18-464)
== END ==
PROVIDERS: PCP Family Medicine; Referring Provider Family Medicine; Visit Provider Physical Medicine & Rehabilitation
DX: M50.30 Other cervical disc degeneration, unspecified cervical region (principal); M48.02 Spinal stenosis, cervical region; N18.32 Chronic kidney disease, stage 3b; D63.1 Anemia in chronic kidney disease; R53.82 Chronic fatigue, unspecified; R31.0 Gross hematuria; G89.29 Other chronic pain
CPT/HCPCS: 36415; 72050; 82728; 85025